=== PATIENT | male | born 1990 | race African-American/Black ===

== ENCOUNTER 2021-03-03 11:00 | Emergency (ER) | payer SELFPAY ==
[2021-03-03 11:27] VITALS: BP 100/67; PULSE 79; RESP 17; TEMP 37; O2SAT 98; BMI 27.6
== END 2021-03-03 16:17 | disposition left against medical advice (07) ==
PROVIDERS: Emergency Provider Emergency Medicine
DX: R06.02 Shortness of breath (principal)
CPT/HCPCS: 99282

== ENCOUNTER 2021-03-12 19:56 | Emergency (ER) | payer OTHER, SELFPAY ==
--- NOTE | ~2021-03-12 | XR_ITS ---
EXAMINATION: XR CHEST CLINICAL INFORMATION: Cough. Shortness of breath. COMPARISON: None TECHNIQUE: Frontal view of the chest was obtained. FINDINGS: The lungs are clear. The cardiomediastinal silhouette is normal in size. There is no pleural effusion or pneumothorax. No acute osseous abnormality. XR/XR chest 1V IMPRESSION: No acute cardiopulmonary findings.
[2021-03-12 20:00] VITALS: BP 152/78; PULSE 127; RESP 20; TEMP 36.9; O2SAT 95; BMI 26.6
[2021-03-12] MEDS: methylPREDNISolone Sod Succ 125 MG/2 ML VIAL IVPUSH (20:22)
[2021-03-12 20:24] LABS: MANUAL DIFF FLAG NO
[2021-03-12 20:25] LABS: COVID-19 Test Negative (Negative)
[2021-03-12 20:26] LABS: Basophils Absolute Auto 0.1 X10*3/uL (0.0-0.2); Basophils Percent Auto 0.5 % (0-2); Eosinophils Absolute Auto 0.5 X10*3/uL (0.0-0.4); Hematocrit 45.9 % (42-52); Imm Gran Abs Auto 0.03 X10*3/uL (0.00-0.03); Imm Gran Pct Auto 0.3 % (0.0-0.4); Lymphocytes Absolute Auto 2.6 X10*3/uL (1.2-4.9); Lymphocytes Percent Auto 26.7 % (20-40); Mean Corpuscular HGB Conc 34.9 g/dl (31.0-36.0); Mean Corpuscular Hemoglobin 28.6 pg (27.0-33.0); Mean Corpuscular Volume 82.1 fL (80-98); Mean Platelet Volume 8.8 fL (9.4-12.4); Monocytes Absolute Auto 0.8 X10*3/uL (0.1-1.2); Monocytes Percent Auto 7.6 % (2-11); Neutrophils Absolute Auto 5.9 X10*3/uL (2.0-8.3); Neutrophils Percent Auto 59.9 % (45-73); Platelet Count 253 X10*3/uL (160-400); Red Blood Count 5.59 X10*6/uL (4.60-5.80); White Blood Count 9.8 X10*3/uL (4.8-10.8)
[2021-03-12] MEDS: Magnesium Sulfate/H2O 2 GM/50 ML PIGGYBACK IV (20:27)
[2021-03-12] MEDS: 0.9 % Sodium Chloride 1,000 ML 999 ML IV (20:31)
[2021-03-12] MEDS: Albuterol Sulfate (0.083%) 2.5 MG/3 ML VIAL.NEB 7.5 MG INHALE (20:37)
[2021-03-12 20:38] VITALS: PULSE 96; O2SAT 97
[2021-03-12 20:57] LABS: Alanine Aminotransferase 47 U/L (0-40); Albumin Level 4.6 g/dL (3.5-5.0); Alkaline Phosphatase 95 U/L (39-117); Anion Gap 16 (12-20); Aspartate Amino Transferase 30 U/L (5-37); Bilirubin Total 0.4 mg/dL (0.0-1.0); Blood Urea Nitrogen 9 mg/dL (9-16); Calcium 9.6 mg/dL (8.4-10.2); Carbon Dioxide 24 mmol/L (22-29); Chloride 107 mmol/L (96-108); Creatinine Clr Calc Pharmacy 91.9; Estimated Glomerular Filt Rate > 60; Glucose Random 94 mg/dL (60-115); Potassium 3.8 mmol/L (3.3-5.1); Sodium 143 mmol/L (135-145); Total Protein 7.8 g/dL (6.5-8.0)
--- NOTE | 2021-03-12 22:35 | ED_ITS ---
HPI - Asthma General Chief Complaint: Asthma Stated Complaint: asthma Time Seen by Provider: 03/12/21 20:11 Source: patient Mode of arrival: wheelchair Limitations: no limitations History of Present Illness HPI Narrative: 22-year-old male who reports history of asthma presenting complaint of dry cough with now shortness of breath with wheezing for the past 5-6 days. 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 He denies any recent fever, travel or sick contacts. States he has received both of his COVID-19 vaccinations. He denies any chest pain. Foot be smoking. MD complaint: asthma attack Onset (ago): day(s) Severity: moderate Context: allergen exposure Associated symptoms: dry cough Treatments Prior to Arrival: inhaled bronchodilator Related Data Current Asthma Therapy: inhaled bronchodilator Previous Rx's Medication Instructions Recorded albuterol sulfate 90 mcg/actuation 2 puff INHALATION Q4-6H PRN 7 Days 03/12/21 aerosol inhaler #8.5 g prednisone 20 mg tablet 40 mg PO DAILY 5 Days #10 tab 03/12/21 Allergies Allergy/AdvReac Type Severity Reaction Status Date / Time unknown antibiotic Allergy Itching Uncoded 03/03/21 11:26 Review of Systems Review of Systems: Constitutional: No Weight loss, No Fever, No Chills, No Night Sweats, No Fatigue, No Malaise ENT/Mouth: No Hearing loss, No Ear Pain, No Nasal Congestion, No Sinus Pain, No Hoarseness, No sore throat, No Rhinorrhea, No Swallowing Difficulty Eyes: No Eye Pain, No Swelling, No Redness, No Foreign Body, No Discharge, No Vision Changes Cardiovascular: No Chest Pain, No SOB, No Dyspnea on Exertion, No Orthopnea, No Edema, No Palpitations Respiratory: No Cough, No Sputum, No Wheezing, No Smoke Exposure, No Dyspnea Gastrointestinal: No Nausea, No Vomiting, No Diarrhea, No Constipation, No abdominal Pain, No Hematochezia, No Melena Genitourinary: No Dysuria, No Urinary Frequency, No Hematuria, No Urinary Incontinence, No Urgency, No Flank Pain, No Urinary Flow Changes, No Hesitancy Musculoskeletal: No joint pain, No Myalgias, No Joint Swelling Skin: No Skin Lesions, No rash Neuro: No Weakness, No Numbness, No Paresthesias, No Loss of Consciousness, No Dizziness, No Headache Psych: No Anxiety/Panic, No Depression, No SI/HI/AH/VH, No Social Issues, Heme/Lymph: No Bruising, No Bleeding,No Lymphadenopathy Endocrine: No Polyuria, No Polydipsia, No Temperature Intolerance [facility] Past Medical History Medical History (Updated 03/12/21 @ 22:38 by Trell Pastrana NP) Asthma Heart attack Social History Social History Advance Directives: No Advance Directives Information Provided: Yes Physical Exam Vital Signs: Vital Signs: Last Vital Signs Temp 98.4 F 03/12/21 20:00 Pulse 96 03/12/21 20:38 Resp 20 03/12/21 20:00 BP 152/78 H 03/12/21 20:00 Pulse Ox 95 03/12/21 20:00 Body Mass Index 26.6 Const: General: acute distress (Mild respiratory) and anxious (Tachypneic); No intoxicated appearing Nutritional Appearance: average body habitus Orientation/consciousness: patient oriented x3 HENMT: Head: Yes normal to inspection Ears: hearing grossly normal bilaterally Eyes: General: appearance normal, both eyes and all related structures Visual Erazo: normal visual erazo by confrontation Neck: Neck: Yes normal visual inspection, No positive Brudzinski's sign, No positive Kernig's sign and No tender Thyroid: Thyroid normal Chest: Chest palpation & inspection: normal inspection of the chest Resp: Effort & Inspection: Actively coughing (Mild dry) Auscultation: wheezes expiratory wheezes and throughout Cardio: Jugular venous distension: no JVD Rate: regular rate Rhythm: regular rhythm Heart sounds: S1 normal heart sound present and S2 normal heart sound present GI: Inspection: Yes normal to inspection Percussion: Yes normal to percussion Auscultation: normal bowel sounds : General: Yes no CVA tenderness Back/Spine/Pelvis: Back: no CVA tenderness Skin: General skin exam: no rashes or lesions noted Neuro: General: patient oriented x3 Extrem: General: Yes normal to inspection Course Course Course Narrative: Given IV fluids, Solu-Medrol and magnesium with our Lung up directly upon arrival feels significantly better. Lung sounds clear to auscultation. Labs overall stable, chest x-ray negative, COVID negative. Ambulatory without any evidence of shortness of breath with complaint of. He feels ?much better?. Will discharge home with supportive care, course of prednisone, return and follow-up instructions. Stable for discharge. Differential diagnosis include but not limited to asthma exacerbation setting of environmental allergen exposure, status asthmaticus, pneumonia, COVID-19, ACS less likely, PE less likely, dissection less likely. MDM - Asthma Lab Data Result diagrams: 03/12/21 20:19 03/12/21 20:19 Labs: Lab Results 03/12/21 03/12/21 03/12/21 Range/Units 20:05 20:19 20:19 WBC 9.8 (4.8-10.8) X10*3/uL RBC 5.59 (4.60-5.80) X10*6/uL Hgb 16.0 (14.0-18.0) g/dl Hct 45.9 (42-52) % MCV 82.1 (80-98) fL MCH 28.6 (27.0-33.0) pg MCHC 34.9 (31.0-36.0) g/dl RDW 14.0 (11.0-16.0) % Plt Count 253 (160-400) X10*3/uL MPV 8.8 L (9.4-12.4) fL Immature Gran % (Auto) 0.3 (0.0-0.4) % Neut % (Auto) 59.9 (45-73) % Lymph % (Auto) 26.7 (20-40) % [place] % (Auto) 7.6 (2-11) % Eos % (Auto) 5.0 H (0-4) % Baso % (Auto) 0.5 (0-2) % Lymph # (Auto) 2.6 (1.2-4.9) X10*3/uL [place] # (Auto) 0.8 (0.1-1.2) X10*3/uL Eos # (Auto) 0.5 H (0.0-0.4) X10*3/uL Baso # (Auto) 0.1 (0.0-0.2) X10*3/uL Abs Immat Gran (auto) 0.03 (0.00-0.03) X10*3/uL Absolute Neuts (auto) 5.9 (2.0-8.3) X10*3/uL Absolute Nucleated RBC 0.000 (0.0-0.012) X10*3/uL Nucleated RBC % (auto) 0.0 (0.0-0.2) /100WBC Sodium 143 (135-145) mmol/L Potassium 3.8 (3.3-5.1) mmol/L Chloride 107 (96-108) mmol/L Carbon Dioxide 24 (22-29) mmol/L Anion Gap 16 (12-20) BUN 9 (9-16) mg/dL Creatinine 1.04 (0.5-1.4) mg/dL Estim Creat Clear Calc 91.9 Estimated GFR > 60 Random Glucose 94 (60-115) mg/dL Calcium 9.6 (8.4-10.2) mg/dL Total Bilirubin 0.4 (0.0-1.0) mg/dL AST 30 (5-37) U/L ALT 47 H (0-40) U/L Alkaline Phosphatase 95 (39-117) U/L Total Protein 7.8 (6.5-8.0) g/dL Albumin 4.6 (3.5-5.0) g/dL COVID-19 (ESTER) Negative (Negative) COVID-19 Clin Com See Note Discharge Plan Discharge Clinical Impression: Asthma with acute exacerbation Qualifiers: Asthma severity: unspecified severity Asthma persistence: unspecified Qualified Code(s): J45.901 - Unspecified asthma with (acute) exacerbation Patient Disposition: Home, Self-Care Instructions: Asthma (ED) Additional Instructions: Supportive care Avoid triggers Take medication as prescribed Return if any concerns or worsening symptoms Follow up with primary doctor in the next 2-3 days Thank you Prescriptions: New prednisone 20 mg tablet 40 mg PO DAILY 5 Days Qty: 10 RF: 0 albuterol sulfate 90 mcg/actuation HFA aerosol inhaler 2 puff inhalation Q4-6H PRN (Reason: shortness of breath or wheezing) 7 Days Qty: 8.5 RF: 0 Referrals: Radha Winter MD [Primary Care Provider] - 2 days
[2021-03-12 22:51] VITALS: BP 112/64; PULSE 94; RESP 16; O2SAT 96
== END 2021-03-12 22:57 | disposition home or self-care (01) ==
PROVIDERS: Nurse Practitioner Primary Care; Emergency Provider Emergency Medicine; PCP Internal Medicine
DX: J45.901 Unspecified asthma with (acute) exacerbation (principal); Z20.822 Contact with and (suspected) exposure to COVID-19
CPT/HCPCS: 36415; 71045; 80053; 85025; 87635; 94640; 94644; 96361; 96365; 96366; 96375; 99283; 99284; J2930; J3475

== ENCOUNTER 2021-04-20 13:43 | Emergency (ER) | payer OTHER, SELFPAY ==
--- NOTE | ~2021-04-20 | XR_ITS ---
EXAMINATION: XR CHEST CLINICAL INFORMATION: Dyspnea COMPARISON: Previous chest x-ray February 2021 TECHNIQUE: Frontal view of the chest was obtained. FINDINGS: No significant abnormality is noted involving the heart, lungs, mediastinum, bony thorax or soft tissues. XR/XR chest 1V IMPRESSION: Unremarkable examination.
[2021-04-20 13:45] VITALS: BP 121/81; PULSE 119; RESP 36; TEMP 36.6; O2SAT 94; BMI 26.6
--- NOTE | 2021-04-20 14:00 | ECG_ITS ---
Test Reason : ATHSMA Blood Pressure : / mmHG Vent. Rate : 101 BPM Atrial Rate : 101 BPM P-R Int : 172 ms QRS Dur : 084 ms QT Int : 322 ms P-R-T Axes : 071 085 055 degrees QTc Int : 417 ms Sinus tachycardia Otherwise normal ECG No previous ECGs available Referred By: Lucie Malloy Electronically Signed By:RUFUS RHODES
[2021-04-20] MEDS: 0.9 % Sodium Chloride 1,000 ML 999 ML IV (14:03)
[2021-04-20] MEDS: methylPREDNISolone Sod Succ 125 MG/2 ML VIAL IVPUSH (14:03)
[2021-04-20] MEDS: Magnesium Sulfate/H2O 2 GM/50 ML PIGGYBACK IV (14:03)
--- NOTE | 2021-04-20 14:03 | ED_ITS ---
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) Associated symptoms: dry cough Asthma History: childhood onset Treatments Prior to Arrival: other (tried INH multiple times no relief) Related Data Previous Rx's Medication Instructions Recorded albuterol sulfate 90 mcg/actuation 2 puff INHALATION Q4-6H PRN 7 Days 03/12/21 aerosol inhaler #8.5 g prednisone 20 mg tablet 40 mg PO DAILY 5 Days #10 tab 03/12/21 albuterol sulfate 2.5 mg INHALATION Q4-6H PRN #75 ml 04/20/21 prednisone 20 mg tablet 60 mg PO DAILY 5 Days #15 tab 04/20/21 Allergies Allergy/AdvReac Type Severity Reaction Status Date / Time unknown antibiotic Allergy Itching Uncoded 03/03/21 11:26 Review of Systems Review of Systems: Constitutional : No Fever, No Chills ENT/Mouth : No Hoarseness, No sore throat, No Rhinorrhea Eyes: No Redness, No Discharge, No Vision Changes Cardiovascular : No Chest Pain, positive SOB, positive Dyspnea on Exertion, No Edema Respiratory : positive Cough, No Sputum, positive Wheezing, Gastrointestinal : No Nausea, No Vomiting, No Diarrhea, No abdominal Pain Genitourinary : No Dysuria, No Hematuria Musculoskeletal : No joint pain, No Myalgias Skin : No rash Neuro : No Weakness, No Numbness, No Headache Psych : No anxiety, depression Heme/Lymph: No Bruising, No Bleeding Endocrine : No Polyuria, No Polydipsia All other systems reviewed and are negative PMFSH Past Medical History Attestation statement: The following information was validated with the patient. Medical History Asthma Heart attack Social History Social History (Updated 04/20/21 @ 14:10 by Lucie Malloy DO) Patient Tobacco Use Status: Current someday Tobacco user Use of substances other than those prescribed or required for medical reasons: No Physical Exam Vital Signs: Vital Signs: Last Vital Signs Temp 98 F 04/20/21 13:45 Pulse 111 H 04/20/21 14:35 Resp 18 04/20/21 14:35 BP 133/90 H 04/20/21 14:35 Pulse Ox 96 04/20/21 14:35 Body Mass Index 26.6 Appearance: Alert. Oriented X3. mild acute distress. Eyes: Pupils equal, round and reactive to light. ENT: Pharynx normal. Neck: Normal inspection. Neck supple. CVS:tachycardic heart rate and rhythm. Pulses normal. Respiratory: Mild respiratory distress retractions and tachypnea Breath sounds diffuse insp and exp wheezes Abdomen: Soft and nontender. Skin: Skin warm and dry. Normal skin color. Normal skin turgor. Extremities: No lower extremity edema. No calf ttp Neuro: Oriented X 3. No motor deficit. No sensory deficit. Course Course Course Narrative: markedly improved, 97% on RA Clear lungs patient is not hypoxic he is 97-98% on RA. Safe for discharge home MDM - Asthma MDM Narrative Medical decision making narrative: 30 yo male with hx of asthma comes in with attack for 2 days thinks it is due to his cold exposures at work. At this time will need labs, IV steroids, IV magnesium, hour long 10mg neb, COVID swab and CXR, dispo per results and workup. Lab Data Result diagrams: 04/20/21 14:06 04/20/21 14:06 Labs: Lab Results 04/20/21 04/20/21 04/20/21 Range/Units 14:06 14:06 14:17 WBC 8.7 (4.8-10.8) X10*3/uL RBC 5.50 (4.60-5.80) X10*6/uL Hgb 15.8 (14.0-18.0) g/dl Hct 45.4 (42-52) % MCV 82.5 (80-98) fL MCH 28.7 (27.0-33.0) pg MCHC 34.8 (31.0-36.0) g/dl RDW 13.3 (11.0-16.0) % Plt Count 286 (160-400) X10*3/uL MPV 8.6 L (9.4-12.4) fL Immature Gran % (Auto) 0.2 (0.0-0.4) % Neut % (Auto) 68.7 (45-73) % Lymph % (Auto) 18.0 L (20-40) % [place] % (Auto) 9.0 (2-11) % Eos % (Auto) 3.4 (0-4) % Baso % (Auto) 0.7 (0-2) % Lymph # (Auto) 1.6 (1.2-4.9) X10*3/uL [place] # (Auto) 0.8 (0.1-1.2) X10*3/uL Eos # (Auto) 0.3 (0.0-0.4) X10*3/uL Baso # (Auto) 0.1 (0.0-0.2) X10*3/uL Abs Immat Gran (auto) 0.02 (0.00-0.03) X10*3/uL Absolute Neuts (auto) 6.0 (2.0-8.3) X10*3/uL Absolute Nucleated RBC 0.000 (0.0-0.012) X10*3/uL Nucleated RBC % (auto) 0.0 (0.0-0.2) /100WBC Sodium 141 (135-145) mmol/L Potassium 4.3 (3.3-5.1) mmol/L Chloride 109 H (96-108) mmol/L Carbon Dioxide 25 (22-29) mmol/L Anion Gap 11 L (12-20) BUN 14 D (9-16) mg/dL Creatinine 1.06 (0.5-1.4) mg/dL Estim Creat Clear Calc 90.2 Estimated GFR > 60 Random Glucose 95 (60-115) mg/dL Calcium 9.0 D (8.4-10.2) mg/dL COVID-19 (ESTER) Negative (Negative) COVID-19 Clin Com See Note ECG Data Attestation: I personally reviewed and interpreted this ECG as follows: ECG interpretation date: 04/20/21 ECG interpretation time: 15:26 Interpretation: Rate: 101 Rhythm: sinus tachycardia [place]: normal Normal P waves. Normal TONIA. Normal QRS complex. ST T wave : normal no MICHELE qTC: normal prior studies: no acute ischemia The study has been interpreted contemporaneously by me. . Critical Care Time Critical Care Time Critical Care Time: Yes Total Critical Care Time: 35 Attestation: hour long neb, reassessments I attest to this time spent taking care of the patient Discharge Plan Discharge Clinical Impression: Asthma with acute exacerbation Qualifiers: Asthma severity: moderate Asthma persistence: persistent Qualified Code(s): J45.41 - Moderate persistent asthma with (acute) exacerbation Instructions: Asthma (ED) Additional Instructions: return to ED for any worsening symptoms or concerns COVID negative Prescriptions: New albuterol sulfate 2.5 mg /3 mL (0.083 %) solution for nebulization 2.5 mg inhalation Q4-6H PRN (Reason: bronchospasm) Qty: 75 RF: 0 prednisone 20 mg tablet 60 mg PO DAILY 5 Days Qty: 15 RF: 0 No Action prednisone 20 mg tablet 40 mg PO DAILY 5 Days Qty: 10 RF: 0 albuterol sulfate 90 mcg/actuation HFA aerosol inhaler 2 puff inhalation Q4-6H PRN (Reason: shortness of breath or wheezing) 7 Days Qty: 8.5 RF: 0 Stand Alone Forms: Work/School Release
[2021-04-20] MEDS: Albuterol Sulfate (0.083%) 2.5 MG/3 ML VIAL.NEB 10 MG INHALE (14:05)
[2021-04-20 14:09] LABS: MANUAL DIFF FLAG NO
[2021-04-20 14:11] LABS: Basophils Absolute Auto 0.1 X10*3/uL (0.0-0.2); Basophils Percent Auto 0.7 % (0-2); Eosinophils Absolute Auto 0.3 X10*3/uL (0.0-0.4); Eosinophils Percent Auto 3.4 % (0-4); Hematocrit 45.4 % (42-52); Hemoglobin 15.8 g/dl (14.0-18.0); Imm Gran Abs Auto 0.02 X10*3/uL (0.00-0.03); Imm Gran Pct Auto 0.2 % (0.0-0.4); Lymphocytes Absolute Auto 1.6 X10*3/uL (1.2-4.9); Mean Corpuscular HGB Conc 34.8 g/dl (31.0-36.0); Mean Corpuscular Hemoglobin 28.7 pg (27.0-33.0); Mean Corpuscular Volume 82.5 fL (80-98); Mean Platelet Volume 8.6 fL (9.4-12.4); Monocytes Absolute Auto 0.8 X10*3/uL (0.1-1.2); Neutrophils Percent Auto 68.7 % (45-73); Platelet Count 286 X10*3/uL (160-400); Red Cell Distribution Width 13.3 % (11.0-16.0); White Blood Count 8.7 X10*3/uL (4.8-10.8)
[2021-04-20 14:24] LABS: Anion Gap 11 (12-20); Blood Urea Nitrogen 14 mg/dL (9-16); Carbon Dioxide 25 mmol/L (22-29); Chloride 109 mmol/L (96-108); Creatinine Clr Calc Pharmacy 90.2; Estimated Glomerular Filt Rate > 60; Glucose Random 95 mg/dL (60-115); Potassium 4.3 mmol/L (3.3-5.1); Sodium 141 mmol/L (135-145)
[2021-04-20 14:35] VITALS: BP 133/90; PULSE 111; RESP 18; O2SAT 96
[2021-04-20 14:35] LABS: COVID-19 Test Negative (Negative); IDNOW Serial# 9DD0AD1C
== END 2021-04-20 16:01 | disposition home or self-care (01) ==
LOC: HO.ED 16:00
PROVIDERS: Emergency Provider Emergency Medicine
DX: J45.41 Moderate persistent asthma with (acute) exacerbation (principal); R06.02 Shortness of breath; R05 Cough; Z20.822 Contact with and (suspected) exposure to COVID-19; F17.200 Nicotine dependence, unspecified, uncomplicated; Z71.6 Tobacco abuse counseling; Z79.899 Other long term (current) drug therapy
CPT/HCPCS: 36415; 71045; 80048; 85025; 87635; 93005; 96365; 96366; 96375; 99284; 99291; J2930; J3475

== ENCOUNTER 2021-05-25 18:10 | Emergency (ER) | payer OTHER, SELFPAY ==
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
--- NOTE | ~2021-05-25 | CT_ITS ---
Indication: Trauma EXAMINATION: CT of the cervical spine and CT brain. Axial imaging with coronal and sagittal reformatted images. Radiation dose is 672.470. This CT examination was performed using dose optimization techniques as appropriate, variously including the following: *Automated exposure control *Adjustment of mA and/or kV according to patient size (this includes techniques or standardized protocols for targeted exams where dose is matched to indication/reason for exam; i.e. extremities or head) *Use of iterative reconstruction technique Cervical spine; No acute fracture or dislocation. CT brain; No midline shift. There is no mass effect. There is no hemorrhage. The basilar cisterns appear patent. The posterior fossa risk grossly within normal limits. There is no extra-axial collection. No evidence for fracture on the bone windows. CT/CT cervical spine wo con IMPRESSION: Negative acute noncontrast CT of the brain. No acute fracture or dislocation of the cervical spine.
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
[2021-05-25 18:57] VITALS: BP 105/57; BP 138/80; PULSE 77; RESP 18; TEMP 36.9; O2SAT 98; O2SAT 99; BMI 27.9
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
[2021-05-25] MEDS: Acetaminophen 325 MG TABLET 975 MG PO (19:28)
== END 2021-05-25 20:30 | disposition home or self-care (01) ==
PROVIDERS: Emergency Provider Internal Medicine
DX: S06.0X0A Concussion without loss of consciousness, initial encounter (principal); S73.109A Unspecified sprain of unspecified hip, initial encounter; S83.91XA Sprain of unspecified site of right knee, initial encounter; S93.401A Sprain of unspecified ligament of right ankle, initial encounter; V13.4XXA Pedal cycle driver injured in collision with car, pick-up truck or van in traffic accident, initial encounter; Y93.55 Activity, bike riding; Y92.410 Unspecified street and highway as the place of occurrence of the external cause; Y99.9 Unspecified external cause status
CPT/HCPCS: 70450; 72125; 73522; 73564; 73610; 99283; 99284

== ENCOUNTER 2021-06-25 19:04 | Emergency (ER) | payer OTHER, SELFPAY ==
--- NOTE | ~2021-06-25 | XR_ITS ---
EXAMINATION: XR CHEST CLINICAL INFORMATION: Shortness of breath COMPARISON: 04/20/2021 TECHNIQUE: Frontal view of the chest was obtained. FINDINGS: No focal consolidation, pulmonary edema, or pleural effusion. Stable cardiomediastinal silhouette. XR/XR chest 1V IMPRESSION: Unremarkable examination.
[2021-06-25 19:17] VITALS: BP 137/92; PULSE 92; RESP 22; TEMP 36.7; O2SAT 97; BMI 28.3
[2021-06-25] MEDS: Albuterol Sulfate (0.083%) 2.5 MG/3 ML VIAL.NEB 10 MG INHALE (19:32)
[2021-06-25 19:33] VITALS: PULSE 87; O2SAT 98
[2021-06-25] MEDS: 0.9 % Sodium Chloride 1,000 ML 999 ML IVCONT (19:49)
[2021-06-25 19:51] LABS: MANUAL DIFF FLAG NO
[2021-06-25 19:54] LABS: Basophils Absolute Auto 0.1 X10*3/uL (0.0-0.2); Basophils Percent Auto 0.8 % (0-2); Eosinophils Absolute Auto 0.7 X10*3/uL (0.0-0.4); Eosinophils Percent Auto 6.5 % (0-4); Hematocrit 46.9 % (42.0-52.0); Hemoglobin 16.1 g/dl (14.0-18.0); Imm Gran Abs Auto 0.03 X10*3/uL (0.00-0.03); Imm Gran Pct Auto 0.3 % (0.0-0.4); Lymphocytes Absolute Auto 2.9 X10*3/uL (1.2-4.9); Lymphocytes Percent Auto 28.1 % (20-40); Mean Corpuscular HGB Conc 34.3 g/dl (31.0-36.0); Mean Corpuscular Hemoglobin 28.4 pg (27.0-33.0); Mean Corpuscular Volume 82.7 fL (80.0-98.0); Mean Platelet Volume 8.9 fL (9.4-12.4); Monocytes Absolute Auto 0.7 X10*3/uL (0.1-1.2); Monocytes Percent Auto 6.2 % (2-11); Neutrophils Percent Auto 58.1 % (45-73); Platelet Count 225 X10*3/uL (160-400); Red Blood Count 5.67 X10*6/uL (4.60-5.80); Red Cell Distribution Width 13.6 % (11.0-16.0); White Blood Count 10.4 X10*3/uL (4.8-10.8)
[2021-06-25 20:07] LABS: Anion Gap 12 (12-20); Blood Urea Nitrogen 13 mg/dL (9-16); Calcium 9.1 mg/dL (8.4-10.2); Carbon Dioxide 26 mmol/L (22-29); Chloride 108 mmol/L (96-108); Creatinine Clr Calc Pharmacy 76.9; Estimated Glomerular Filt Rate > 60; Glucose Random 131 mg/dL (60-115); Potassium 3.9 mmol/L (3.3-5.1); Sodium 142 mmol/L (135-145)
[2021-06-25 20:10] LABS: COVID-19 Test Negative (Negative); IDNOW Serial# 08D9AD1C
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
[2021-06-25 21:16] VITALS: O2SAT 99
--- NOTE | 2021-06-25 21:47 | PC.NURSE ---
I assumed care of Clovis upon his arrival via EMS from home. On arrival he was experiencing severe L flank pain that he stated started while en route to the ED. He initially called 911 due to dyspnea and wheezing. EMS states he was in moderate resp. distress on their arrival, requiring 2 DuoNebs, IV Magnesium 2grams and IVP SoluMedrol 125mg. Upon arrival to ED pt states his SOB and wheezing had improved. RT was present on admission and continued pt on nebs. At this time pt feels much improved, denies L flank pain and admits to relief of shortness of breath. He has ambulated throughout the department without exhibiting shortness of breath and while maintaining a room air sat of 99%. Clovis has been pleasant, calm and cooperative. He ambulates independently and with steady gait. Clovis is discharged at this time. He verbalized an understanding of all DC orders and ambulated out of the ED independently and with steady gait.
== END 2021-06-25 22:00 | disposition home or self-care (01) ==
PROVIDERS: Emergency Provider Internal Medicine
DX: J45.901 Unspecified asthma with (acute) exacerbation (principal); R06.82 Tachypnea, not elsewhere classified; Z20.822 Contact with and (suspected) exposure to COVID-19; R07.81 Pleurodynia; F17.200 Nicotine dependence, unspecified, uncomplicated; Z79.899 Other long term (current) drug therapy
CPT/HCPCS: 36415; 71045; 80048; 85025; 87635; 94640; 94644; 96360; 99284; 99285

== ENCOUNTER 2021-07-07 19:02 | Emergency (ER) | payer OTHER, SELFPAY ==
--- NOTE | ~2021-07-07 | XR_ITS ---
EXAMINATION: XR CHEST CLINICAL INFORMATION: Shortness of breath COMPARISON: 06/25/2021 TECHNIQUE: Frontal view of the chest was obtained. FINDINGS: No significant abnormality is noted involving the heart, lungs, mediastinum, bony thorax or soft tissues. Compared to the prior study, the lungs are hypoinflated. XR/XR chest 1V IMPRESSION: No acute intrathoracic disease.
[2021-07-07 19:08] VITALS: BP 152/92; PULSE 119; RESP 26; O2SAT 99; BMI 28.3
--- NOTE | 2021-07-07 19:09 | ED.ASTHMA ---
HPI - Asthma General Chief Complaint: Dyspnea Stated Complaint: sob Time Seen by Provider: 07/07/21 19:05 Source: patient and EMS Mode of arrival: EMS Limitations: other (Shortness of breath) History of Present Illness HPI Narrative: Patient comes via EMS complaining of shortness of breath. Patient is known to have asthma. Per EMS, patient received Solu-Medrol, DuoNebs, magnesium. Related Data Previous Rx's Medication Instructions Recorded albuterol sulfate 90 mcg/actuation 2 puff INHALATION Q4-6H PRN 7 Days 03/12/21 aerosol inhaler #8.5 g prednisone 20 mg tablet 40 mg PO DAILY 5 Days #10 tab 03/12/21 albuterol sulfate 2.5 mg (3 mL) INHALATION Q4-6H PRN 04/20/21 #75 ml prednisone 20 mg tablet 60 mg PO DAILY 5 Days #15 tab 04/20/21 acetaminophen 500 mg tablet 1,000 mg PO QID PRN #14 tab 05/25/21 (Tylenol Extra Strength) cyclobenzaprine 10 mg tablet 10 mg PO Q8H PRN #14 tab 05/25/21 albuterol sulfate 90 mcg/actuation 2 puff INHALATION Q4-6H PRN #8.5 g 06/25/21 aerosol inhaler (ProAir HFA) prednisone 20 mg tablet 40 mg PO DAILY #10 tab 06/25/21 albuterol sulfate 2.5 mg/0.5 mL 2.5 mg (0.5 mL) INHALATION QID PRN 07/07/21 solution for nebulization #30 ea albuterol sulfate 90 mcg/actuation 2 puff INHALATION Q4-6H PRN #8.5 g 07/07/21 aerosol inhaler (ProAir HFA) ipratropium 20 mcg-albuterol 100 1 puff INHALATION QID #4 g 07/07/21 mcg/actuation mist for inhalation (Combivent Respimat) prednisone 50 mg tablet 50 mg PO DAILY #5 tab 07/07/21 Allergies Allergy/AdvReac Type Severity Reaction Status Date / Time unknown antibiotic Allergy Itching Uncoded 03/03/21 11:26 Review of Systems Review of Systems: Constitutional : No Weight loss, No Fever, No Chills, No Night Sweats, No Fatigue, No Malaise ENT/Mouth : No Hearing loss, No Ear Pain, No Nasal Congestion, No Sinus Pain, No Hoarseness, No sore throat, No Rhinorrhea, No Swallowing Difficulty Eyes: No Eye Pain, No Swelling, No Redness, No Foreign Body, No Discharge, No Vision Changes Cardiovascular : No Chest Pain, No SOB, No Dyspnea on Exertion, No Orthopnea, No Edema, No Palpitations Respiratory : No Cough, No Sputum, complaining of wheezing shortness of breath Gastrointestinal : No Nausea, No Vomiting, No Diarrhea, No Constipation, No abdominal Pain, No Hematochezia, No Melena Genitourinary : no irregular bleeding, No Dysuria, No Urinary Frequency, No Hematuria, No Urinary Incontinence, No Urgency, No Flank Pain, No Urinary Flow Changes, No Hesitancy Musculoskeletal : No joint pain, No Myalgias, No Joint Swelling Skin : No Skin Lesions, No rash Neuro : No Weakness, No Numbness, No Paresthesias, No Loss of Consciousness, No Dizziness, No Headache Psych : No Anxiety/Panic, No Depression, No SI/HI/AH/VH, No Social Issues, Heme/Lymph: No Bruising, No Bleeding,No Lymphadenopathy Endocrine : No Polyuria, No Polydipsia, No Temperature Intolerance [facility] Past Medical History Medical History Asthma Heart attack Social History Social History Alcohol intake: current Patient Tobacco Use Status: Current someday Tobacco user Advance Directives: No Advance Directives Information Provided: Yes Physical Exam Vital Signs: Vital Signs: Last Vital Signs Pulse 108 H 07/07/21 20:41 Resp 22 H 07/07/21 20:41 BP 149/68 H 07/07/21 19:49 Pulse Ox 98 07/07/21 19:49 Oxygen Flow Rate 7 07/07/21 19:08 BMI result Body Mass Index 28.3 Const: Other: Appearance: Alert. Oriented X3. No acute distress. Eyes: Pupils equal, round and reactive to light. ENT: Pharynx normal. Neck: Normal inspection. Neck supple. No lymph nodes noted. No crepitus CVS: Normal heart rate and rhythm. Pulses normal. Normal S1 and S2 Respiratory: No respiratory distress. Breath sounds normal. No Wheezing. No rales Abdomen: Soft and nontender. No rigidity. No distention. good BS x4 Skin: Skin warm and dry. Normal skin color. Normal skin turgor. Extremities: No lower extremity edema. No lower extremity edema. No Lacerations. No Rash Neuro: Oriented X 3. No motor deficit. No sensory deficit. Moving all extermities. No slurred speech. Course Course Course Narrative: Patient is currently on his 2nd our long nebulization treatment. Patient feels much better, no longer wheezing. Anticipating to discharge patient home. Pending ambulation trial Sign out given to Dr. Salinas [facility] - Asthma Lab Data Result diagrams: 07/07/21 19:17 07/07/21 19:17 Labs: Lab Results 07/07/21 07/07/21 07/07/21 Range/Units 19:17 19:17 19:20 WBC 14.2 H (4.8-10.8) X10*3/uL RBC 5.58 (4.60-5.80) X10*6/uL Hgb 15.8 (14.0-18.0) g/dl Hct 46.0 (42.0-52.0) % MCV 82.4 (80.0-98.0) fL MCH 28.3 (27.0-33.0) pg MCHC 34.3 (31.0-36.0) g/dl RDW 13.9 (11.0-16.0) % Plt Count 244 (160-400) X10*3/uL MPV 8.6 L (9.4-12.4) fL Immature Gran % (Auto) 0.4 (0.0-0.4) % Neut % (Auto) 72.2 (45-73) % Lymph % (Auto) 15.7 L (20-40) % [place] % (Auto) 8.0 (2-11) % Eos % (Auto) 3.1 (0-4) % Baso % (Auto) 0.6 (0-2) % Lymph # (Auto) 2.2 (1.2-4.9) X10*3/uL [place] # (Auto) 1.1 (0.1-1.2) X10*3/uL Eos # (Auto) 0.4 (0.0-0.4) X10*3/uL Baso # (Auto) 0.1 (0.0-0.2) X10*3/uL Abs Immat Gran (auto) 0.06 H (0.00-0.03) X10*3/uL Absolute Neuts (auto) 10.2 H (2.0-8.3) x10*3/uL Absolute Nucleated RBC 0.000 (0.0-0.012) X10*3/uL Nucleated RBC % (auto) 0.0 (0.0-0.2) /100WBC VBG pH 7.37 (7.32-7.43) VBG pCO2 44 mmHg VBG pO2 88 mmHg VBG HCO3 26 (22-26) mmol/L VBG O2 Saturation 96.0 % VBG Base Excess 0.5 mmol/L Sodium 139 (135-145) mmol/L Potassium 4.1 (3.3-5.1) mmol/L Chloride 107 (96-108) mmol/L Carbon Dioxide 23 (22-29) mmol/L Anion Gap 13 (12-20) BUN 10 (9-16) mg/dL Creatinine 1.05 (0.5-1.4) mg/dL Estim Creat Clear Calc 100.3 Estimated GFR > 60 Random Glucose 107 (60-115) mg/dL Calcium 9.4 (8.4-10.2) mg/dL Discharge Plan Discharge Clinical Impression: Asthma with exacerbation Patient Disposition: Home, Self-Care Instructions: Asthma (ED) Additional Instructions: Please follow-up with your primary care physician tomorrow. If you have any worsening or new symptoms, please return to the emergency room or call 911 Prescriptions: New Combivent Respimat 20-100 mcg/actuation mist 1 puff inhalation QID Qty: 4 RF: 0 albuterol sulfate [ProAir HFA] 90 mcg/actuation HFA aerosol inhaler 2 puff inhalation Q4-6H PRN (Reason: shortness of breath or wheezing) Qty: 8.5 RF: 1 prednisone 50 mg tablet 50 mg PO DAILY Qty: 5 RF: 0 albuterol sulfate 2.5 mg/0.5 mL solution for nebulization 2.5 mg inhalation QID PRN (Reason: shortness of breath or wheezing) Qty: 30 RF: 0 No Action prednisone 20 mg tablet 40 mg PO DAILY 5 Days Qty: 10 RF: 0 albuterol sulfate 90 mcg/actuation HFA aerosol inhaler 2 puff inhalation Q4-6H PRN (Reason: shortness of breath or wheezing) 7 Days Qty: 8.5 RF: 0 albuterol sulfate 2.5 mg /3 mL (0.083 %) solution for nebulization 2.5 mg inhalation Q4-6H PRN (Reason: bronchospasm) Qty: 75 RF: 0 prednisone 20 mg tablet 60 mg PO DAILY 5 Days Qty: 15 RF: 0 acetaminophen [Tylenol Extra Strength] 500 mg tablet 1,000 mg PO QID PRN (Reason: fever or pain) Qty: 14 RF: 0 cyclobenzaprine 10 mg tablet 10 mg PO Q8H PRN (Reason: Muscle spasm) Qty: 14 RF: 0 albuterol sulfate [ProAir HFA] 90 mcg/actuation HFA aerosol inhaler 2 puff inhalation Q4-6H PRN (Reason: shortness of breath or wheezing) Qty: 8.5 RF: 0 prednisone 20 mg tablet 40 mg PO DAILY Qty: 10 RF: 0
[2021-07-07 19:19] VITALS: PULSE 113; RESP 26; O2SAT 99
[2021-07-07] MEDS: Albuterol/Iprat 2.5/0.5MG 3 ML AMPUL.NEB INHALE (19:19)
[2021-07-07] MEDS: Albuterol Sulfate (0.083%) 2.5 MG/3 ML VIAL.NEB 10 MG INHALE ×2 (19:19→20:40)
--- NOTE | 2021-07-07 19:21 | PC.NURSE ---
Pt attached to telemetry monitor and pulse ox, call light at hand. Remains dyspneic but endorses feeling better than he did on initial EMS arrival. RT at bedside for additional duoneb and hour-long treatment. Pt remains awake and alert, skin warm and dry
[2021-07-07 19:22] LABS: MANUAL DIFF FLAG NO
[2021-07-07 19:26] LABS: Venous Blood Gas Refer to POC result
[2021-07-07 19:26] LABS: VBG Base Excess 0.5 mmol/L; VBG HCO3 26 mmol/L (22-26); VBG pCO2 44 mmHg; VBG pH 7.37 (7.32-7.43); VBG pO2 88 mmHg
[2021-07-07 19:28] LABS: Basophils Absolute Auto 0.1 X10*3/uL (0.0-0.2); Basophils Percent Auto 0.6 % (0-2); Eosinophils Absolute Auto 0.4 X10*3/uL (0.0-0.4); Eosinophils Percent Auto 3.1 % (0-4); Hemoglobin 15.8 g/dl (14.0-18.0); Imm Gran Abs Auto 0.06 X10*3/uL (0.00-0.03); Imm Gran Pct Auto 0.4 % (0.0-0.4); Lymphocytes Absolute Auto 2.2 X10*3/uL (1.2-4.9); Lymphocytes Percent Auto 15.7 % (20-40); Mean Corpuscular HGB Conc 34.3 g/dl (31.0-36.0); Mean Corpuscular Hemoglobin 28.3 pg (27.0-33.0); Mean Corpuscular Volume 82.4 fL (80.0-98.0); Mean Platelet Volume 8.6 fL (9.4-12.4); Monocytes Absolute Auto 1.1 X10*3/uL (0.1-1.2); Neutrophils Absolute Auto 10.2 x10*3/uL (2.0-8.3); Neutrophils Percent Auto 72.2 % (45-73); Platelet Count 244 X10*3/uL (160-400); Red Blood Count 5.58 X10*6/uL (4.60-5.80); Red Cell Distribution Width 13.9 % (11.0-16.0); White Blood Count 14.2 X10*3/uL (4.8-10.8)
--- NOTE | 2021-07-07 19:32 | PC.NURSE ---
Pt received solumedrol and 2g mag IV per EMS. Additional doses held per MD Apodaca
[2021-07-07 19:36] LABS: Anion Gap 13 (12-20); Blood Urea Nitrogen 10 mg/dL (9-16); Calcium 9.4 mg/dL (8.4-10.2); Carbon Dioxide 23 mmol/L (22-29); Chloride 107 mmol/L (96-108); Creatinine Clr Calc Pharmacy 100.3; Estimated Glomerular Filt Rate > 60; Glucose Random 107 mg/dL (60-115); Potassium 4.1 mmol/L (3.3-5.1); Sodium 139 mmol/L (135-145)
[2021-07-07 19:49] VITALS: BP 149/68; PULSE 116; RESP 24; O2SAT 98
[2021-07-07 20:41] VITALS: PULSE 108; RESP 22; O2SAT 98
--- NOTE | 2021-07-07 21:03 | PC.NURSE ---
Pt w/ decreased WOB, endorses relief s/p nebulizer administration. Remains attached to monitor
--- NOTE | 2021-07-07 21:54 | PC.NURSE ---
Pt ambulatory O2 sat on room air remained > 95%. MD Salinas made aware
[2021-07-07 22:11] VITALS: PULSE 98; RESP 22; O2SAT 95
== END 2021-07-07 22:26 | disposition home or self-care (01) ==
PROVIDERS: Emergency Medicine; Emergency Provider Student in an Organized Health Care Education/Training Program
DX: J45.901 Unspecified asthma with (acute) exacerbation (principal); F17.200 Nicotine dependence, unspecified, uncomplicated
CPT/HCPCS: 36415; 71045; 80048; 82803; 85025; 94640; 94644; 94645; 96365; 96366; 96375; 99283; 99285

== ENCOUNTER 2021-07-15 17:06 | Inpatient (IN) | payer OTHER, SELFPAY ==
[2021-07-15] VITALS (13 sets, daily range): BP systolic 104–177; BP diastolic 59–109; PULSE 97–170; RESP 20–35; TEMP 30–37.3; O2SAT 94–100; BMI 25.1
--- NOTE | ~2021-07-15 | XR_ITS ---
EXAMINATION: XR CHEST CLINICAL INFORMATION: Status post intubation. COMPARISON: 07/07/2021 TECHNIQUE: Frontal view of the chest was obtained. FINDINGS: Endotracheal tube terminates 5.5 cm above the melquiades. Enteric tube extends into the stomach. The side port is above the level of the gastroesophageal junction. The lungs are well expanded. There is no focal consolidation, edema, or effusion. No pneumothorax. The cardiomediastinal silhouette is within normal limits. No acute osseous abnormality. XR/XR chest 1V IMPRESSION: Clear lungs. Enteric tube side port above the level of the gastroesophageal junction. Suggest advancement.
--- NOTE | ~2021-07-15 | CT_ITS ---
EXAMINATION: CT CHEST WITHOUT CONTRAST CLINICAL INFORMATION: 5 minutes of CPR. Rule out barotrauma. COMPARISON: Chest radiograph done earlier today at 5:23 PM. TECHNIQUE: Multidetector volumetric CT imaging of the chest was done. Axial MIP volume rendering provided. Sagittal and coronal reformatted images were obtained. This CT examination was performed using dose optimization techniques as appropriate, variously including the following: *Automated exposure control *Adjustment of mA and/or kV according to patient size (this includes techniques or standardized protocols for targeted exams where dose is matched to indication/reason for exam; i.e. extremities or head) *Use of iterative reconstruction technique DLP: 484 mGy-cm FINDINGS: LINER MAN: Endotracheal tube terminates at 3.4 cm above the melquiades. The side port of the enteric tube appears to project over the gastroesophageal junction and the tip terminates at the level of the stomach body. Multiple additional external wires, including EKG wires, overlie the patient. LUNGS: There are dependent atelectasis in the lung bases without focal consolidation. There are a few indeterminate pulmonary nodules. For instance, a 0.4 cm nodule in the right upper lobe (5:164), a 0.2 cm nodule in the right upper lobe (5:192) and a 0.3 cm nodule in the left lower lobe (5:366). There are small amount of layering mucus secretions in the mid to lower trachea. MEDIASTINUM: Normal heart size without pericardial effusion or mediastinal hematoma. No lymphadenopathy by size criteria. Normal appearance of the thyroid gland. PLEURA: There is no pleural effusion. No pleural mass or thickening. AXILLA: There is a small amount of air in the superficial soft tissues anterior to the left pectoralis major (5:105). No chest wall mass or lymphadenopathy. UPPER ABDOMEN: Decreased hepatic parenchymal attenuation suggestive of hepatic steatosis. OSSEOUS STRUCTURES: No acute or aggressive osseous abnormalities. CT/CT chest wo con IMPRESSION: No evidence of barotrauma. Mild subsegmental atelectasis. Subcentimeter pulmonary nodules of uncertain etiology. Given patient's age, Fleischner criteria cannot be applied and if clinically indicated, consider a follow-up. Hepatic steatosis.
--- NOTE | 2021-07-15 17:06 | PC.NURSE ---
PT ARRIVED TO ED AFTER EMS CALLED IN PT ARRIVING W/ASTHMA EXAC, PER EMS PT WENT INTO RESP/CARDIAC ARREST UPON ARRIVAL TO ED. WHEN PT ROLLED INTO ED EMT WAS DOING COMPRESSIONS AND THEY HAD THE PTS FIANCE GIVING BVM RESP. 1706- CPR IN PROGRESS, RT CALLED, IN ROOM, PREPARING FOR INTUBATION. #20 IV PLACED IN R HAND. 1709- PULSE CHECK, PT HAS PULSE, SINUS TACH ON MONITOR, PT BEING BAGGED BY RT. INITIAL STAT 84%- 94% 1710- PT IN SINUS TACH, 2D POINT OF ACCESS PLACED, PT HAS #18 IN L AC, RT SUCTIONING BLOOD FROM AIRWAY POC 117, PULSE 176, BP 111/[address] MILTON 20MG ETOMIDATE IN VIA IVP, 100MG SUCCINYCHOLINE IN VIA IVP, DR. MILTON NOW ATTEMPTING INTUBATION 1713 7.5 ET TUBE PLACED #24 @ LIP W/+COLOR CHANGE, AND LUNG, XRAY ORDER, WILL DROP OG I THE MEANTIME, TEMP SENSING JOHNSON WILL. 1717 5MG VERSED IVP GIVEN, PROPOFOL ORDER FOR SEDATION WILL BE GOING IN 1718 PT SINUS TAVH 160, BP 140/93
[2021-07-15] MEDS: Succinylcholine Chloride 200 MG/10 ML VIAL 100 MG IVPUSH (17:12)
[2021-07-15] MEDS: Etomidate 20 MG/10 ML VIAL IVPUSH (17:12)
--- NOTE | 2021-07-15 17:13 | ECG_ITS ---
Test Reason : RESPIRTORY Blood Pressure : / mmHG Vent. Rate : 136 BPM Atrial Rate : 136 BPM P-R Int : 160 ms QRS Dur : 084 ms QT Int : 264 ms P-R-T Axes : 070 090 073 degrees QTc Int : 397 ms Poor data quality, interpretation may be adversely affected Sinus tachycardia Rightward axis Borderline ECG When compared with ECG of 20-APR-2021 15:12, Nonspecific T wave abnormality now evident in Lateral leads Referred By: Saravanan Grimaldo Electronically Signed By:GILMA CHIU MD
[2021-07-15] MEDS: Midazolam HCl/PF 2 MG/2 ML VIAL 5 MG IVPUSH (17:17)
--- NOTE | 2021-07-15 17:20 | ED_ITS ---
HPI - CPR General Chief Complaint: Cardiac Arrest/CPR Stated Complaint: Cardiac Arrest Time Seen by Provider: 07/15/21 17:13 Source: EMS Mode of arrival: EMS Limitations: altered mental status History of Present Illness HPI narrative: Patient arrived in cardiac arrest. Patient was called for an asthma attack given a MDI in the ambulance upon transfer he coded as he was coming out of the ambulance. EMS was doing CPR upon arrival MD complaint: found unresponsive and stopped breathing Onset (ago): minute(s) Place: other (ambulance) Associated symptoms: shortness of breath and other (Asthma attack) Related Data Previous Rx's Medication Instructions Recorded acetaminophen 500 mg tablet 1,000 mg PO QID PRN #14 tab 05/25/21 (Tylenol Extra Strength) cyclobenzaprine 10 mg tablet 10 mg PO Q8H PRN #14 tab 05/25/21 ipratropium 20 mcg-albuterol 100 1 puff INHALATION QID #4 g 07/07/21 mcg/actuation mist for inhalation (Combivent Respimat) albuterol sulfate 2.5 mg (3 mL) INHALATION Q4-6H PRN 07/19/21 #75 ml amoxicillin 875 mg-potassium 1 tab PO BID #4 tab 07/19/21 clavulanate 125 mg tablet epinephrine 0.3 mg/0.3 mL 0.3 mg (0.3 mL) IM Q4H PRN #1 ea 07/19/21 injection, auto-injector fluticasone furoate 200 1 ea INHALATION RDAILY #60 ea 07/19/21 mcg-vilanterol 25 mcg/dose inhalation powder (Breo Ellipta) montelukast 10 mg tablet 10 mg PO BEDTIME 30 Days #30 tab 07/19/21 prednisone 20 mg tablet See Taper PO DAILY #30 tab 07/19/21 albuterol sulfate 2.5 mg (3 mL) INHALATION Q4H PRN 07/21/21 30 Days #360 ml albuterol sulfate 90 mcg/actuation 2 puff INHALATION Q4-6H PRN 7 Days 07/21/21 aerosol inhaler #8.5 g prednisone 10 mg tablet See Rx Instructions PO DAILY 14 07/21/21 Days #24 tab fluticasone 500 mcg-salmeterol 50 1 ea INHALATION Q12H #60 ea 07/25/21 mcg/dose blistr powdr for inhalation (Advair Diskus) Allergies Allergy/AdvReac Type Severity Reaction Status Date / Time unknown antibiotic Allergy Itching Uncoded 07/21/21 10:37 Review of Systems Review of Systems: Yes Unobtainable due to mental condition [facility] Past Medical History Medical History (Updated 07/27/21 @ 00:03 by Nate Franklin) Asthma Asthma Dyspnea Heart attack Status asthmaticus, intrinsic Weakness Social History Social History Household Members: Significant Other Housing: House Do you presently have visiting nurse or other home services: No Unable to assess alcohol history related to: Unable to respond Alcohol intake: current Patient Tobacco Use Status: Current someday Tobacco user service: No Current occupational status: employed Physical Exam Vital Signs: Vital Signs: Last Vital Signs Temp 98.3 F 07/19/21 11:16 Pulse 82 07/19/21 11:24 Resp 18 07/19/21 11:24 BP 102/54 L 07/19/21 11:16 Pulse Ox 98 07/19/21 11:16 BMI result Body Mass Index 25.1 Const: Other: young male with CPR occuring Nutritional Appearance: average ashley dy habitus Limitations: other limitations (coded unresponsive) HENMT: Head: Yes normal to inspection Ears: external ears normal General nose exam: Normal external nose present Mouth: Normal oral and palatal mucosa present and oropharynx normal Throat: Yes posterior oropharynx normal Eyes: General: appearance normal, both eyes and all related structures Neck: Other: supple Neck: Yes normal visual inspection Chest: Chest palpation & inspection: normal inspection of the chest Resp: Other: Diffuses wheezing with bagging Cardio: Other: initially no heart sounds Jugular venous distension: no JVD GI: Inspection: Yes normal to inspection Palpation (GI): Soft to palpation and No hepatosplenomegaly present Auscultation: normal bowel sounds : General: Yes no CVA tenderness Back/Spine/Pelvis: Back: no CVA tenderness Skin: General skin exam: no rashes or lesions noted Neuro: Other: no movement initially then started to breath Extrem: General: Yes normal to inspection Psych: Appearance: grossly normal Course Reevaluation(s) Reevaluation #2: patient with 3-5 minutes of CPR, intubated and pulses returned, high peak pressures as he remains really tight, bedside US shows good cardiac movement, will obtain CT of chest to make sure there was not barotrauma from CPR Time: 18:28 MDM - Cardiac Arrest/CPR Lab Data Result diagrams: 07/19/21 05:58 07/19/21 05:58 Labs: Lab Results 07/15/21 07/15/21 07/15/21 Range/Units 17:11 17:26 17:26 WBC 16.2 H (4.8-10.8) X10*3/uL RBC 5.63 (4.60-5.80) X10*6/uL Hgb 16.0 (14.0-18.0) g/dl Hct 49.8 (42.0-52.0) % MCV 88.5 (80.0-98.0) fL MCH 28.4 (27.0-33.0) pg MCHC 32.1 (31.0-36.0) g/dl RDW 14.3 (11.0-16.0) % Plt Count 259 (160-400) X10*3/uL MPV 9.3 L (9.4-12.4) fL Immature Gran % (Auto) 1.4 H (0.0-0.4) % Neut % (Auto) 54.9 (45-73) % Lymph % (Auto) 32.8 (20-40) % [place] % (Auto) 6.5 (2-11) % Eos % (Auto) 3.8 (0-4) % Baso % (Auto) 0.6 (0-2) % Lymph # (Auto) 5.3 H (1.2-4.9) X10*3/uL [place] # (Auto) 1.1 (0.1-1.2) X10*3/uL Eos # (Auto) 0.6 H (0.0-0.4) X10*3/uL Baso # (Auto) 0.1 (0.0-0.2) X10*3/uL Abs Immat Gran (auto) 0.22 H (0.00-0.03) X10*3/uL Absolute Neuts (auto) 8.9 H (2.0-8.3) x10*3/uL Absolute Nucleated RBC 0.000 (0.0-0.012) X10*3/uL Nucleated RBC % (auto) 0.0 (0.0-0.2) /100WBC Smear Tech's Comments VERIFIED Sodium 142 (135-145) mmol/L Potassium 5.4 H D (3.3-5.1) mmol/L Chloride 105 (96-108) mmol/L Carbon Dioxide 16 L (22-29) mmol/L Anion Gap 26 H (12-20) BUN 11 (9-16) mg/dL Creatinine 1.31 (0.5-1.4) mg/dL Estim Creat Clear Calc 83.9 Estimated GFR > 60 POC Glucose 117 H (60-115) mg/dL Random Glucose 94 (60-115) mg/dL Calcium 9.3 (8.4-10.2) mg/dL Magnesium 2.5 (1.6-2.6) mg/dL Total Bilirubin 0.5 (0.0-1.0) mg/dL AST 114 H (5-37) U/L ALT 183 H (0-40) U/L Alkaline Phosphatase 94 (39-117) U/L Troponin I High Sens (<3.5-35.0) ng/L Total Protein 8.0 (6.5-8.0) g/dL Albumin 4.3 (3.5-5.0) g/dL Urine Color Urine Appearance Urine pH (5.0-8.0) Ur Specific [place] (1.005-1.025) Urine Protein (NEG-TRACE) MG/DL Urine Glucose (UA) (NEG) MG/DL Urine Ketones (NEG) MG/DL Urine Blood (NEG) Urine Nitrite (NEG) Ur Leukocyte Esterase (NEG) Urine RBC (0) /HPF Urine WBC (0-4) /HPF Ur Squamous Epith Cells /LPF Urine Bacteria /LPF Salicylates < 5.0 L (15-30) mg/dL Urine Opiates Screen (Not Detect) Urine Fentanyl Screen (Not Detect) Acetaminophen < 1 (<30) mcg/mL Ur Barbiturates Screen (Not Detect) Ur Phencyclidine Scrn (Not Detect) Ur Amphetamines Screen (Not Detect) U Benzodiazepines Scrn (Not Detect) Urine Cocaine Screen (Not Detect) U Marijuana (THC) Screen (Not Detect) Ethyl Alcohol mg/dL COVID-19 (ESTER) (Negative) COVID-19 Clin Com 07/15/21 07/15/21 07/15/21 Range/Units 17:26 17:26 17:50 WBC (4.8-10.8) X10*3/uL RBC (4.60-5.80) X10*6/uL Hgb (14.0-18.0) g/dl Hct (42.0-52.0) % MCV (80.0-98.0) fL MCH (27.0-33.0) pg MCHC (31.0-36.0) g/dl RDW (11.0-16.0) % Plt Count (160-400) X10*3/uL MPV (9.4-12.4) fL Immature Gran % (Auto) (0.0-0.4) % Neut % (Auto) (45-73) % Lymph % (Auto) (20-40) % [place] % (Auto) (2-11) % Eos % (Auto) (0-4) % Baso % (Auto) (0-2) % Lymph # (Auto) (1.2-4.9) X10*3/uL [place] # (Auto) (0.1-1.2) X10*3/uL Eos # (Auto) (0.0-0.4) X10*3/uL Baso # (Auto) (0.0-0.2) X10*3/uL Abs Immat Gran (auto) (0.00-0.03) X10*3/uL Absolute Neuts (auto) (2.0-8.3) x10*3/uL Absolute Nucleated RBC (0.0-0.012) X10*3/uL Nucleated RBC % (auto) (0.0-0.2) /100WBC Smear Tech's Comments Sodium (135-145) mmol/L Potassium (3.3-5.1) mmol/L Chloride (96-108) mmol/L Carbon Dioxide (22-29) mmol/L Anion Gap (12-20) BUN (9-16) mg/dL Creatinine (0.5-1.4) mg/dL Estim Creat Clear Calc Estimated GFR POC Glucose (60-115) mg/dL Random Glucose (60-115) mg/dL Calcium (8.4-10.2) mg/dL Magnesium (1.6-2.6) mg/dL Total Bilirubin (0.0-1.0) mg/dL AST (5-37) U/L ALT (0-40) U/L Alkaline Phosphatase (39-117) U/L Troponin I High Sens 26.2 (<3.5-35.0) ng/L Total Protein (6.5-8.0) g/dL Albumin (3.5-5.0) g/dL Urine Color Urine Appearance Urine pH (5.0-8.0) Ur Specific [place] (1.005-1.025) Urine Protein (NEG-TRACE) MG/DL Urine Glucose (UA) (NEG) MG/DL Urine Ketones (NEG) MG/DL Urine Blood (NEG) Urine Nitrite (NEG) Ur Leukocyte Esterase (NEG) Urine RBC (0) /HPF Urine WBC (0-4) /HPF Ur Squamous Epith Cells /LPF Urine Bacteria /LPF Salicylates (15-30) mg/dL Urine Opiates Screen (Not Detect) Urine Fentanyl Screen (Not Detect) Acetaminophen (<30) mcg/mL Ur Barbiturates Screen (Not Detect) Ur Phencyclidine Scrn (Not Detect) Ur Amphetamines Screen (Not Detect) U Benzodiazepines Scrn (Not Detect) Urine Cocaine Screen (Not Detect) U Marijuana (THC) Screen (Not Detect) Ethyl Alcohol < 10 mg/dL COVID-19 (ESTER) Negative (Negative) COVID-19 Clin Com See Note 07/15/21 07/15/21 Range/Units 17:50 17:50 WBC (4.8-10.8) X10*3/uL RBC (4.60-5.80) X10*6/uL Hgb (14.0-18.0) g/dl Hct (42.0-52.0) % MCV (80.0-98.0) fL MCH (27.0-33.0) pg MCHC (31.0-36.0) g/dl RDW (11.0-16.0) % Plt Count (160-400) X10*3/uL MPV (9.4-12.4) fL Immature Gran % (Auto) (0.0-0.4) % Neut % (Auto) (45-73) % Lymph % (Auto) (20-40) % [place] % (Auto) (2-11) % Eos % (Auto) (0-4) % Baso % (Auto) (0-2) % Lymph # (Auto) (1.2-4.9) X10*3/uL [place] # (Auto) (0.1-1.2) X10*3/uL Eos # (Auto) (0.0-0.4) X10*3/uL Baso # (Auto) (0.0-0.2) X10*3/uL Abs Immat Gran (auto) (0.00-0.03) X10*3/uL Absolute Neuts (auto) (2.0-8.3) x10*3/uL Absolute Nucleated RBC (0.0-0.012) X10*3/uL Nucleated RBC % (auto) (0.0-0.2) /100WBC Smear Tech's Comments Sodium (135-145) mmol/L Potassium (3.3-5.1) mmol/L Chloride (96-108) mmol/L Carbon Dioxide (22-29) mmol/L Anion Gap (12-20) BUN (9-16) mg/dL Creatinine (0.5-1.4) mg/dL Estim Creat Clear Calc Estimated GFR POC Glucose (60-115) mg/dL Random Glucose (60-115) mg/dL Calcium (8.4-10.2) mg/dL Magnesium (1.6-2.6) mg/dL Total Bilirubin (0.0-1.0) mg/dL AST (5-37) U/L ALT (0-40) U/L Alkaline Phosphatase (39-117) U/L Troponin I High Sens (<3.5-35.0) ng/L Total Protein (6.5-8.0) g/dL Albumin (3.5-5.0) g/dL Urine Color STRAW Urine Appearance HAZY Urine pH 6.0 (5.0-8.0) Ur Specific [place] 1.020 (1.005-1.025) Urine Protein 2+ H (NEG-TRACE) MG/DL Urine Glucose (UA) 250 H (NEG) MG/DL Urine Ketones NEG (NEG) MG/DL Urine Blood 3+ H (NEG) Urine Nitrite NEG (NEG) Ur Leukocyte Esterase NEG (NEG) Urine RBC 50-75 H (0) /HPF Urine WBC 0 (0-4) /HPF Ur Squamous Epith Cells NONE /LPF Urine Bacteria 1+ /LPF Salicylates (15-30) mg/dL Urine Opiates Screen Not Detected (Not Detect) Urine Fentanyl Screen Not Detected (Not Detect) Acetaminophen (<30) mcg/mL Ur Barbiturates Screen Not Detected (Not Detect) Ur Phencyclidine Scrn Not Detected (Not Detect) Ur Amphetamines Screen Not Detected (Not Detect) U Benzodiazepines Scrn Not Detected (Not Detect) Urine Cocaine Screen Not Detected (Not Detect) U Marijuana (THC) Screen POSITIVE H (Not Detect) Ethyl Alcohol mg/dL COVID-19 (ESTER) (Negative) COVID-19 Clin Com Procedures Procedure Narrative Procedure Narrative: Patient intubated with direct visualization using Mac 4 and 7.5cm ETT, 23 at [facility] Critical Care Time Critical Care Time Attestation: I spent 45 minutes of critical care, with interventions, assessments, speaking to patient, consultants, and family. Discharge Plan Discharge Clinical Impression: Cardiac arrest, Acute respiratory failure, Asthma attack Patient Disposition: Admitted As Inpatient Discharge Date/Time: 07/15/21 20:00
[2021-07-15] MEDS: Albuterol Sulfate (0.083%) 2.5 MG/3 ML VIAL.NEB 10 MG INHALE (17:26)
[2021-07-15] MEDS: methylPREDNISolone Sod Succ 125 MG/2 ML VIAL IVPUSH ×2 (17:31→23:10)
--- NOTE | 2021-07-15 17:31 | PC.NURSE ---
ng and ett confirmed by ausc and cxr
[2021-07-15] MEDS: Magnesium Sulfate/H2O 2 GM/50 ML PIGGYBACK IV (17:35)
[2021-07-15] MEDS: Rocuronium Bromide 50 MG/5 ML VIAL IVPUSH ×2 (17:35→18:49)
--- NOTE | 2021-07-15 17:37 | PC.NURSE ---
18g lac and 20g r hand
[2021-07-15 17:43] LABS: Basophils Absolute Auto 0.1 X10*3/uL (0.0-0.2); Basophils Percent Auto 0.6 % (0-2); Eosinophils Absolute Auto 0.6 X10*3/uL (0.0-0.4); Eosinophils Percent Auto 3.8 % (0-4); Hematocrit 49.8 % (42.0-52.0); Imm Gran Abs Auto 0.22 X10*3/uL (0.00-0.03); Imm Gran Pct Auto 1.4 % (0.0-0.4); Lymphocytes Absolute Auto 5.3 X10*3/uL (1.2-4.9); Lymphocytes Percent Auto 32.8 % (20-40); MANUAL DIFF FLAG SCAN; Mean Corpuscular HGB Conc 32.1 g/dl (31.0-36.0); Mean Corpuscular Hemoglobin 28.4 pg (27.0-33.0); Mean Corpuscular Volume 88.5 fL (80.0-98.0); Mean Platelet Volume 9.3 fL (9.4-12.4); Monocytes Absolute Auto 1.1 X10*3/uL (0.1-1.2); Monocytes Percent Auto 6.5 % (2-11); Neutrophils Absolute Auto 8.9 x10*3/uL (2.0-8.3); Neutrophils Percent Auto 54.9 % (45-73); Platelet Count 259 X10*3/uL (160-400); Red Blood Count 5.63 X10*6/uL (4.60-5.80); Red Cell Distribution Width 14.3 % (11.0-16.0); SCAN SMEAR FLAG 1; White Blood Count 16.2 X10*3/uL (4.8-10.8)
--- NOTE | 2021-07-15 17:43 | PC.NURSE ---
propofol drip started at 15mcg
[2021-07-15 17:50] LABS: Ethanol < 10 mg/dL
[2021-07-15 17:59] LABS: Troponin-I High Sensitivity 26.2 ng/L (<3.5-35.0)
[2021-07-15 18:01] LABS: Acetaminophen LAB < 1 mcg/mL (<30); Alanine Aminotransferase 183 U/L (0-40); Albumin Level 4.3 g/dL (3.5-5.0); Alkaline Phosphatase 94 U/L (39-117); Aspartate Amino Transferase 114 U/L (5-37); Bilirubin Total 0.5 mg/dL (0.0-1.0); Blood Urea Nitrogen 11 mg/dL (9-16); Calcium 9.3 mg/dL (8.4-10.2); Creatinine Clr Calc Pharmacy 83.9; Estimated Glomerular Filt Rate > 60; Glucose Random 94 mg/dL (60-115); Magnesium 2.5 mg/dL (1.6-2.6); Salicylate < 5.0 mg/dL (15-30)
[2021-07-15 18:03] LABS: Appearance Urine HAZY; Color Urine STRAW; Glucose Urine UA 250 MG/DL (NEG); Leukocyte Esterase Urine NEG (NEG); Nitrite Urine NEG (NEG); UACC Culture Trigger NO; Urine Blood 3+ (NEG); Urine Ketones NEG (NEG); Urine Protein 2+ MG/DL (NEG-TRACE)
--- NOTE | 2021-07-15 18:04 | PM.CCHP ---
History of Present Illness Date of Service: 07/15/21 Attending physician on admission: Wanda Barry Chief Complaint: sob 30-year-old male with frequent presentations of hypoxic respiratory failure/status asthmaticus and more of the same today but actually had respiratory arrest at the door requiring brief resuscitation he was initially in rapid atrial fibrillation with heart rates as high as 180 converted spontaneously to sinus tachycardia rate 145 post intubation and initially there was no evidence of of chest movement clearly was severely air trapping with severe did diffuse small airway bronchospasm none and the he was started on a a paralytic agent and we had to switch from volume control to pressure control and continually reduced the inspiratory time to allow him for much greater expiratory time and then eventually expert volume started to increase the no from about the 100-150 cc eventually 250 cc and hopefully this was going to allow gradually improving alveolar ventilation which it did end-tidal CO2 is were starting to diminish from approximately 80 into the low 60s at which point his blood pressure began to stabilize as well and my bedside echocardiogram demonstrated normal anatomy with normal LV and RV size and function no primary valve or pericardial disease this appeared to be all severe reactive airway disease So he started high-dose oral steroid actually intravenous parental steroid along with very aggressive infrequent shortening as short-acting a sympathomimetic bronchodilator treatments and of course he had an elevated lactate Margie both from his in a work of breathing as well as from the sympathomimetics Both chest x-ray and chest CT scan showed no evidence of infiltrate occluded there was no aspiration and there was definitely no evidence of a even an occult pneumothorax or pneumomediastinum Review of Systems Review of Systems: Yes unobtainable due to endotracheal tube PMFSH Past Medical History Medical History (Updated 07/16/21 @ 08:53 by Wanda Barry MD) Asthma Heart attack Status asthmaticus, intrinsic Social History Social History Household Members: Significant Other Housing: House Do you presently have visiting nurse or other home services: No Unable to assess alcohol history related to: Unable to respond Alcohol intake: current Patient Tobacco Use Status: Current someday Tobacco user Use of substances other than those prescribed or required for medical reasons: Unable to respond Currently Displaying Signs/Symptoms of Drug Intoxication Withdrawal: No Advance Directives: No Advance Directives Information Provided: Yes Do you have thoughts of harming others: None Do you have a plan to hurt others: No Plan Recently lost weight without trying: Unsure Poor oral hygiene: No service: No Current occupational status: employed Meds Allergies Allergy/AdvReac Type Severity Reaction Status Date / Time unknown antibiotic Allergy Itching Uncoded 03/03/21 11:26 Active Medications: Current Medications Magnesium Sulfate (Magnesium Sulfate/H2o) 2 gm in 50 mls @ 25 mls/hr IV ONCE ONE Stop: 07/15/21 19:19 Last Admin: 07/15/21 17:35 Dose: 25 mls/hr Documented by: Propofol (Diprivan) 1,000 mg in 100 mls @ 0 mls/hr IVCONT .Q0M DUSTY; Protocol Physical Exam Vital Signs: Vital Signs: Last Vital Signs Pulse 170 H 07/15/21 17:27 Resp 20 07/15/21 17:27 BMI result Body Mass Index 25.1 And initially no chest movement with no volume until pressure control with graduated did peep reduced inspiratory time and increased expiratory time allowed him to reduce his auto PEEP to the point where blood pressure was restored and thus far he had downgoing toes no Babinski's normal tone normal pupil reactivity so I doubt if there was any underlying nonconvulsive status epilepticus and he was warm and well perfused with no acrocyanosis Results Labs CBC and Chem 7: 07/16/21 03:20 07/16/21 03:20 Labs: Laboratory Results - last 24 hr 07/15/21 07/15/21 07/15/21 17:26 17:26 17:26 Estim Creat Clear Calc 83.9 Estimated GFR > 60 Random Glucose 94 Calcium 9.3 Magnesium 2.5 Total Bilirubin 0.5 AST 114 H ALT 183 H Alkaline Phosphatase 94 Troponin I High Sens 26.2 Total Protein 8.0 Albumin 4.3 Salicylates < 5.0 L Acetaminophen < 1 Ethyl Alcohol < 10 Imaging Radiologist's Impressions: Impressions Chest X-Ray 07/15/21 17:26 IMPRESSION: Clear lungs. Enteric tube side port above the level of the gastroesophageal junction. Suggest advancement. Assessment and Plan (1) Cardiac arrest: Status: Acute (2) Acute respiratory failure: Qualifiers: Respiratory failure complication: unspecified whether with hypoxia or hypercapnia Qualified Code(s): J96.00 - Acute respiratory failure, unspecified whether with hypoxia or hypercapnia Status: Acute (3) Status asthmaticus, intrinsic: Status: Acute (4) Severe persistent reactive airway disease with acute exacerbation: Status: Acute (5) Paroxysmal atrial fibrillation: Status: Acute Continue ventilator support in the pressure control mode and follow-up arterial blood gas to ensure that we are improving his alveolar ventilation diminishing space and support blood pressure as needed and because of the extent of air trapping and at this point no empiric antibiotics to steroids and short-acting bronchodilator therapy continued propofol sedation with the addition of fentanyl and rocuronium is needed to allow better vent ventilation and if there is a temperature spike he could be cultured and empiric antibiotic for community-acquired infection could be initiated
[2021-07-15 18:11] LABS: SLIDE REVIEW VERIFIED
[2021-07-15 18:12] LABS: Anion Gap 26 (12-20); Carbon Dioxide 16 mmol/L (22-29); Chloride 105 mmol/L (96-108); Potassium 5.4 mmol/L (3.3-5.1); Sodium 142 mmol/L (135-145)
[2021-07-15 18:17] LABS: COVID-19 Test Negative (Negative)
[2021-07-15 18:21] LABS: Amphetamine Screen Urine Not Detected (Not Detect); Bacteria Urine 1+ /LPF; Barbiturates, Urine Not Detected (Not Detect); Benzodiazepines Screen Urine Not Detected (Not Detect); Cannabinoid Screen Urine POSITIVE (Not Detect); Cocaine Screen Urine Not Detected (Not Detect); Fentanyl, urine Not Detected (Not Detect); Opiate Screen Urine Not Detected (Not Detect); Phencyclidine Screen Urine Not Detected (Not Detect); RBC Urine 50-75 /HPF (0); WBC Urine 0 /HPF (0-4)
--- NOTE | 2021-07-15 18:48 | PC.NURSE ---
return from ct, pt starting to move around and fight vent. additional dose of zaheer ordered by .
--- NOTE | 2021-07-15 18:57 | MHC.CM.PN ---
CM unable to meet with patient at this time, as patient is intubated. ICU bed pending. CM will follow for d/c needs.
--- NOTE | 2021-07-15 18:59 | PC.NURSE ---
report given to icu. plan to transport in 15 min. report given to lexi corbett.
--- NOTE | 2021-07-15 19:27 | PC.NURSE ---
REPORT GIVEN BY PREVIOUS, LABS BEING DRAWN AT THIS TIME. PT AWAITING FOR TRANSPORT.
[2021-07-15 19:43] LABS: Glucose, Whole Blood 117 mg/dL (60-115)
[2021-07-15] MEDS: fentaNYL citrate/NS 1,000 MCG/100 ML PLAST..BAG 10 MCG IVCONT (20:06)
--- NOTE | 2021-07-15 20:11 | MHC.CM.PN ---
CM unable to interview patient. No IMM necessary. No HCP. S/P cardiopulmonary arrest. Hx asthma. Pt had 3-5 minutes of CPR upon arrival at [facility] Ambulance called for asthma attack . Pt is intubated/vented/sedated. Interviewed conducted with Werner Negron. Kerline states she and Will live together with their 4 children, ages 12,10,6 and 5. Kerline states they must move from their current apartment by the end of the month and are awaiting penitentiary placement. Kerline tells CM that Will was supposed to begin a new job at the [employer] on Sunday. Kerline tells CM that Will has a PCP appointment at the end of the month with a provider at [facility] in [place]. Kerline cannot remember the provider's name. Kerline tells CM that Will has a hx of asthma and panic attacks. CM contact cared given. Kerline escorted to ICU waiting room by CM. Pt transferred to ICU. Kerline aware that CM will follow Will while he is in the hospital. Enc Kerline to speak with ICU doctor about Will's plan of care. D/C plan unsure at this time pending hospital course. Will re-evaluate daily during ICU rounds. CM to follow for d/c needs.
[2021-07-15] MEDS: propofoL 1,000 MG/100 ML VIAL 23.13 MG IVCONT (20:31)
[2021-07-15] MEDS: KCl 20 mEq in 5% Dex/0.45% Sod 20 MEQ/1,000 ML IV.SOLN 125 MEQ IVCONT (20:38)
[2021-07-15] MEDS: Heparin Sodium,Porcine 5,000 UNIT/ML VIAL 5000 UNIT SUBCUT (20:38)
[2021-07-15 21:06] LABS: ABG Base Excess -4.5 mmol/L; ABG HCO3 22 mmol/L (22-26); ABG pCO2 46 mmHg (32-45); ABG pCO2 TC 45 mmHg (32-45); ABG pH 7.28 (7.35-7.45); ABG pH TC 7.29 (7.35-7.45); ABG pO2 103 mmHg (83-108); ABG pO2 TC 100 (83-108)
[2021-07-15 21:47] LABS: Anion Gap 18 (12-20); Blood Urea Nitrogen 12 mg/dL (9-16); Calcium 8.7 mg/dL (8.4-10.2); Carbon Dioxide 22 mmol/L (22-29); Chloride 105 mmol/L (96-108); Creatinine Clr Calc Pharmacy 83.3; Estimated Glomerular Filt Rate > 60; Glucose Random 148 mg/dL (60-115); Sodium 141 mmol/L (135-145)
[2021-07-15] MEDS: 0.9 % Sodium Chloride 1,000 ML 80 ML IVCONT (22:29)
[2021-07-15] MEDS: fentaNYL citrate/NS 1,000 MCG/100 ML PLAST..BAG 15 MCG IVCONT (23:09)
[2021-07-15] MEDS: 0.9 % Sodium Chloride Flush 3 ML SYRINGE IVFLUSH (23:10)
[2021-07-16] VITALS (38 sets, daily range): BP systolic 88–143; BP diastolic 28–85; PULSE 44–120; RESP 9–30; TEMP 29.4–38.2; O2SAT 91–99; BMI 26.4
[2021-07-16] MEDS: propofoL 1,000 MG/100 ML VIAL 20.82 MG IVCONT (00:34)
--- NOTE | 2021-07-16 01:17 | PC.NURSE ---
Addendum entered by Juany Aguiar RN 07/16/21 05:08: Attempts to wean sedation met with vent dyssynchrony- stacks breaths, RR 30s, desaturates. Pt intermittently emerges from sedation, tracks movement, reaches for ETT. At ~0300, tmax 100.8 core, HR 110s, SpO2 86% on 30% FiO2, UOP 15-20 ml/hr- PA notified. New orders for CBC, BMP, LA, VBG, and sputum culture. PA aware of new lab/critical results- orders for 650 mg PO acetaminophen x1, 2L IV NS bolus, 3 grams IV unasyn q8hrs, 10 mg INH albuterol x1. ~0500, SBP 80s, PA aware, currently still has 1L NS bolus running at this time. Original Note: Pt admitted to ICU at approx 2000 from ED. Pt intubated in ED, ETT #7.5, 25 cm at lip. On AC/PC rate 22, 22/8, FiO2 titrated to 30%. Upon initial assessment, RR 30-40s, pt coughing/gagging, biting ETT, copious oral secretions. Propofol drip maxed, fentanyl drip started per emar with good effect- will titrate sedation down as tolerated. ABGS done, PA aware of results. NGT/mcdaniel place, UOP approx 100 ml/hr. Afebrile. NSR/ST on tele, HR 90-100s. SBP WNL. Skin intact. Significant other at bedside and updated on plan of care.
[2021-07-16 01:52] LABS: ABG Refer to POC result
[2021-07-16] MEDS: Acetaminophen 325 MG TABLET 650 MG PO (03:12)
[2021-07-16 03:26] LABS: VBG Base Excess -4.6 mmol/L; VBG HCO3 23 mmol/L (22-26); VBG pCO2 52 mmHg; VBG pH 7.25 (7.32-7.43); VBG pO2 68 mmHg
[2021-07-16 03:48] LABS: Basophils Percent Auto 0.1 % (0-2); Hemoglobin 16.2 g/dl (14.0-18.0); Imm Gran Pct Auto 1.5 % (0.0-0.4); Lymphocytes Absolute Auto 0.6 X10*3/uL (1.2-4.9); Lymphocytes Percent Auto 3.3 % (20-40); MANUAL DIFF FLAG SCAN; Mean Corpuscular HGB Conc 33.8 g/dl (31.0-36.0); Mean Corpuscular Hemoglobin 28.3 pg (27.0-33.0); Mean Corpuscular Volume 83.9 fL (80.0-98.0); Mean Platelet Volume 8.7 fL (9.4-12.4); Monocytes Absolute Auto 0.5 X10*3/uL (0.1-1.2); Monocytes Percent Auto 2.4 % (2-11); Neutrophils Absolute Auto 18.3 x10*3/uL (2.0-8.3); Neutrophils Percent Auto 92.7 % (45-73); Platelet Count 278 X10*3/uL (160-400); Red Blood Count 5.72 X10*6/uL (4.60-5.80); Red Cell Distribution Width 14.2 % (11.0-16.0); SCAN SMEAR FLAG 1; White Blood Count 19.7 X10*3/uL (4.8-10.8)
[2021-07-16] MEDS: Albuterol Sulfate (0.083%) 2.5 MG/3 ML VIAL.NEB INHALE (03:48)
[2021-07-16] MEDS: Ampicillin Sodium/Sulbactam Na 3 GM in 0.9 % Sodium Chloride 100 ML IV ×3 (03:58→20:58)
[2021-07-16 04:01] LABS: Lactic Acid 5.1 mmol/L (0.5-2.0)
[2021-07-16] MEDS: Lactated Ringers 2,000 ML 999 ML IV (04:13)
[2021-07-16 04:15] LABS: SLIDE REVIEW VERIFIED
[2021-07-16 04:19] LABS: Alanine Aminotransferase 260 U/L (0-40); Albumin Level 4.3 g/dL (3.5-5.0); Alkaline Phosphatase 84 U/L (39-117); Anion Gap 20 (12-20); Aspartate Amino Transferase 138 U/L (5-37); Bilirubin Total 0.6 mg/dL (0.0-1.0); Blood Urea Nitrogen 18 mg/dL (9-16); Calcium 9.4 mg/dL (8.4-10.2); Carbon Dioxide 19 mmol/L (22-29); Chloride 105 mmol/L (96-108); Creatinine Clr Calc Pharmacy 72.3; Estimated Glomerular Filt Rate 55; Glucose Random 131 mg/dL (60-115); Potassium 6.1 mmol/L (3.3-5.1); Sodium 138 mmol/L (135-145); Total Protein 7.6 g/dL (6.5-8.0)
[2021-07-16] MEDS: 0.9 % Sodium Chloride 2,000 ML 999 ML IV (04:30)
--- NOTE | 2021-07-16 04:35 | PM.CCPN ---
Subjective Subjective Date of Service: 07/16/21 <RONNI Conley - Last Filed: 07/16/21 21:41> Critical Care Time (minutes): 60 <RONNI Conley - Last Filed: 07/16/21 21:41> Comment: Clinical Precedent to this date: ?22-year-old COVID negative patient was admitted to the ICU post cardiac arrest, reportedly the patient had been having an asthma attack and was given breathing treatments in the ambulance but then coded as he was entering the emergency room. Around 3 in the morning, the patient's oxygen requirements went up and his oxygen sat went down therefore we had to increase the FiO2 from 30% to 50%, an ABG was drawn this showed a pH of 7.248 pCO2 of 51.8 (increased), mildly tachycardic at 110 beats per minute with a new onset fever of 100.8. Focused Sepsis exam done at 3 a.m. on 09/16/2020 VS: ?Blood pressure has been decreasing currently 08/08/2054, heart rate 110, respirations 30, ventilation settings pressure control peep of 8 FiO2 of 50%. General:? Sedated, diaphoretic Skin:? Sweaty otherwise intact Cardiac:? Clear S1-S2, no murmurs rubs or gallops. Pulmonary:? Coarseness bilaterally and throughout at the bases, upper wheezing bilaterally, no crackles or rales.? No defined rhonchi. Vascular:? 2+ pulses upper and lower extremities distally.? Less than 2nd capillary refill of the finger toes bilaterally. SIGNIFICANT LABORATORY DATA:? Reviewed and will be repeated. Most recent labs revealed a white count of 19.7 increased from 16, H&H of 16 and 48 REVIEW OF IMAGES: ?Reviewed; consider CT in am ASSESSMENT AND PLAN: 1.? Acute sepsis, I suspect underlying aspiration pneumonitis 2.? Hypoxic respiratory failure the setting of asthma exacerbation 3.? Respiratory acidosis in the setting of the above 4.? Acute hyperkalemia (MIGUEL ANGEL) 5.? Hemoconcentration and dehydration 6.? Acute kidney injury due to volume depletion and fever loses 1.52 (increased from 1.3) 7. Leukocytosis in the setting of 1. and a steroid administration ? Tylenol via OGT, ice, I will repeat labs and lactic acid, he did have a white count, lactic acid initially had not been checked, he did have blood cultures, I will give him empiric Unasyn, order sputum culture and Gram stain, place him on DuoNeb schedule with albuterol p.r.n. and give him a total of 30 cc/kilo of normal saline.? Continue with steroids. ? -will discontinue IV fluids with potassium; repeat lactic acid in 2 hrs and repeat sepsis exam at 9 am GI PROPHYLAXIS: ?Ppi DVT PROPHYLAXIS: ?Heparin ? Critical care time used for critical evaluation of this patient, diagnosis, treatment and coordination of care, review her records and documentation TOTAL CRITICAL CARE TIME 60 MIN. Patient's care was discussed in detail with Dr. Barry.? He is aware of all the above as well as the plan of care for this patient.? <RONNI Conley - Last Filed: 07/16/21 21:41> Physical Exam Vital Signs: Vital Signs: Last Vital Signs Temp 100.2 F 07/16/21 04:00 Pulse 95 07/16/21 04:00 Resp 21 H 07/16/21 04:00 BP 105/40 L 07/16/21 04:00 Pulse Ox 95 07/16/21 04:00 BMI result Body Mass Index 25.1 <RONNI Conley - Last Filed: 07/16/21 21:41> Objective Data Labs CBC & Chem 7: : 07/17/21 05:22 07/17/21 05:22 <RONNI Conley - Last Filed: 07/16/21 21:41> Labs: Laboratory Results - last 24 hr 07/15/21 07/15/21 07/15/21 17:11 17:26 17:26 WBC 16.2 H RBC 5.63 Hgb 16.0 Hct 49.8 MCV 88.5 MCH 28.4 MCHC 32.1 RDW 14.3 Plt Count 259 MPV 9.3 L Immature Gran % (Auto) 1.4 H Neut % (Auto) 54.9 Lymph % (Auto) 32.8 [facility] % (Auto) 6.5 Eos % (Auto) 3.8 Baso % (Auto) 0.6 Lymph # (Auto) 5.[address] [facility] # (Auto) 1.1 Eos # (Auto) 0.6 H Baso # (Auto) 0.1 Abs Immat Gran (auto) 0.22 H Absolute Neuts (auto) 8.9 H Absolute Nucleated RBC 0.000 Nucleated RBC % (auto) 0.0 Smear Tech's Comments VERIFIED O2 Saturation ABG pH at Pt Temp ABG pH (Temp Correct) ABG pCO2 at Pt Temp ABG pCO2 (Temp Corrct ABG pO2 at Pt Temp ABG pO2 (Temp Correct ABG HCO3 ABG Base Excess (Actual) VBG pH VBG pCO2 VBG pO2 VBG HCO3 VBG O2 Saturation VBG Base Excess Sodium 142 Potassium 5.4 H D Chloride 105 Carbon Dioxide 16 L Anion Gap 26 H BUN 11 Creatinine 1.31 Estim Creat Clear Calc 83.9 Estimated GFR > 60 POC Glucose 117 H Random Glucose 94 Lactic Acid Calcium 9.3 Magnesium 2.5 Total Bilirubin 0.5 AST 114 H ALT 183 H Alkaline Phosphatase 94 Troponin I High Sens Total Protein 8.0 Albumin 4.3 Urine Color Urine Appearance Urine pH Ur Specific Rye Urine Protein Urine Glucose (UA) Urine Ketones Urine Blood Urine Nitrite Ur Leukocyte Esterase Urine RBC Urine WBC Ur Squamous Epith Cells Urine Bacteria Salicylates < 5.0 L Urine Opiates Screen Urine Fentanyl Screen Acetaminophen < 1 Ur Barbiturates Screen Ur Phencyclidine Scrn Ur Amphetamines Screen U Benzodiazepines Scrn Urine Cocaine Screen U Marijuana (THC) Screen Ethyl Alcohol COVID-19 (ESTER) COVID-19 Clin Com 07/15/21 07/15/21 07/15/21 17:26 17:26 17:50 WBC RBC Hgb Hct MCV MCH MCHC RDW Plt Count MPV Immature Gran % (Auto) Neut % (Auto) Lymph % (Auto) [facility] % (Auto) Eos % (Auto) Baso % (Auto) Lymph # (Auto) [facility] # (Auto) Eos # (Auto) Baso # (Auto) Abs Immat Gran (auto) Absolute Neuts (auto) Absolute Nucleated RBC Nucleated RBC % (auto) Smear Tech's Comments O2 Saturation ABG pH at Pt Temp ABG pH (Temp Correct) ABG pCO2 at Pt Temp ABG pCO2 (Temp Corrct ABG pO2 at Pt Temp ABG pO2 (Temp Correct ABG HCO3 ABG Base Excess (Actual) VBG pH VBG pCO2 VBG pO2 VBG HCO3 VBG O2 Saturation VBG Base Excess Sodium Potassium Chloride Carbon Dioxide Anion Gap BUN Creatinine Estim Creat Clear Calc Estimated GFR POC Glucose Random Glucose Lactic Acid Calcium Magnesium Total Bilirubin AST ALT Alkaline Phosphatase Troponin I High Sens 26.2 Total Protein Albumin Urine Color Urine Appearance Urine pH Ur Specific Rye Urine Protein Urine Glucose (UA) Urine Ketones Urine Blood Urine Nitrite Ur Leukocyte Esterase Urine RBC Urine WBC Ur Squamous Epith Cells Urine Bacteria Salicylates Urine Opiates Screen Urine Fentanyl Screen Acetaminophen Ur Barbiturates Screen Ur Phencyclidine Scrn Ur Amphetamines Screen U Benzodiazepines Scrn Urine Cocaine Screen U Marijuana (THC) Screen Ethyl Alcohol < 10 COVID-19 (ESTER) Negative COVID-19 Clin Com See Note 07/15/21 07/15/21 07/15/21 17:50 17:50 21:00 WBC RBC Hgb Hct MCV MCH MCHC RDW Plt Count MPV Immature Gran % (Auto) Neut % (Auto) Lymph % (Auto) [facility] % (Auto) Eos % (Auto) Baso % (Auto) Lymph # (Auto) [facility] # (Auto) Eos # (Auto) Baso # (Auto) Abs Immat Gran (auto) Absolute Neuts (auto) Absolute Nucleated RBC Nucleated RBC % (auto) Smear Tech's Comments O2 Saturation 97.0 ABG pH at Pt Temp 7.28 L ABG pH (Temp Correct) 7.29 L ABG pCO2 at Pt Temp 46 H ABG pCO2 (Temp Corrct 45 ABG pO2 at Pt Temp 103 ABG pO2 (Temp Correct 100 ABG HCO3 22 ABG Base Excess (Actual) -4.5 VBG pH VBG pCO2 VBG pO2 VBG HCO3 VBG O2 Saturation VBG Base Excess Sodium Potassium Chloride Carbon Dioxide Anion Gap BUN Creatinine Estim Creat Clear Calc Estimated GFR POC Glucose Random Glucose Lactic Acid Calcium Magnesium Total Bilirubin AST ALT Alkaline Phosphatase Troponin I High Sens Total Protein Albumin Urine Color STRAW Urine Appearance HAZY Urine pH 6.0 Ur Specific Rye 1.020 Urine Protein 2+ H Urine Glucose (UA) 250 H Urine Ketones NEG Urine Blood 3+ H Urine Nitrite NEG Ur Leukocyte Esterase NEG Urine RBC 50-75 H Urine WBC 0 Ur Squamous Epith Cells NONE Urine Bacteria 1+ Salicylates Urine Opiates Screen Not Detected Urine Fentanyl Screen Not Detected Acetaminophen Ur Barbiturates Screen Not Detected Ur Phencyclidine Scrn Not Detected Ur Amphetamines Screen Not Detected U Benzodiazepines Scrn Not Detected Urine Cocaine Screen Not Detected U Marijuana (THC) Screen POSITIVE H Ethyl Alcohol COVID-19 (ESTER) COVID-19 Clin Com 07/15/21 07/16/21 07/16/21 21:21 03:20 03:20 WBC 19.7 H RBC 5.72 Hgb 16.2 Hct 48.0 MCV 83.9 MCH 28.3 MCHC 33.8 RDW 14.2 Plt Count 278 MPV 8.7 L Immature Gran % (Auto) 1.5 H Neut % (Auto) 92.7 H Lymph % (Auto) 3.[address] [facility] % (Auto) 2.4 Eos % (Auto) 0.0 Baso % (Auto) 0.1 Lymph # (Auto) 0.[address] [facility] # (Auto) 0.5 Eos # (Auto) 0.0 Baso # (Auto) 0.0 Abs Immat Gran (auto) 0.30 H Absolute Neuts (auto) 18.3 H Absolute Nucleated RBC 0.000 Nucleated RBC % (auto) 0.0 Smear Tech's Comments VERIFIED O2 Saturation ABG pH at Pt Temp ABG pH (Temp Correct) ABG pCO2 at Pt Temp ABG pCO2 (Temp Corrct ABG pO2 at Pt Temp ABG pO2 (Temp Correct ABG HCO3 ABG Base Excess (Actual) VBG pH VBG pCO2 VBG pO2 VBG HCO3 VBG O2 Saturation VBG Base Excess Sodium 141 138 Potassium 4.0 D 6.1 H* D Chloride 105 105 Carbon Dioxide 22 19 L Anion Gap 18 20 BUN 12 18 H Creatinine 1.32 1.52 H Estim Creat Clear Calc 83.3 72.3 Estimated GFR > 60 55 POC Glucose Random Glucose 148 H D 131 H Lactic Acid Calcium 8.7 D 9.4 D Magnesium Total Bilirubin 0.6 AST 138 H ALT 260 H Alkaline Phosphatase 84 Troponin I High Sens Total Protein 7.6 Albumin 4.3 Urine Color Urine Appearance Urine pH Ur Specific Rye Urine Protein Urine Glucose (UA) Urine Ketones Urine Blood Urine Nitrite Ur Leukocyte Esterase Urine RBC Urine WBC Ur Squamous Epith Cells Urine Bacteria Salicylates Urine Opiates Screen Urine Fentanyl Screen Acetaminophen Ur Barbiturates Screen Ur Phencyclidine Scrn Ur Amphetamines Screen U Benzodiazepines Scrn Urine Cocaine Screen U Marijuana (THC) Screen Ethyl Alcohol COVID-19 (ESTER) COVID-19 Clin Com 07/16/21 07/16/21 03:20 03:20 WBC RBC Hgb Hct MCV MCH MCHC RDW Plt Count MPV Immature Gran % (Auto) Neut % (Auto) Lymph % (Auto) [facility] % (Auto) Eos % (Auto) Baso % (Auto) Lymph # (Auto) [facility] # (Auto) Eos # (Auto) Baso # (Auto) Abs Immat Gran (auto) Absolute Neuts (auto) Absolute Nucleated RBC Nucleated RBC % (auto) Smear Tech's Comments O2 Saturation ABG pH at Pt Temp ABG pH (Temp Correct) ABG pCO2 at Pt Temp ABG pCO2 (Temp Corrct ABG pO2 at Pt Temp ABG pO2 (Temp Correct ABG HCO3 ABG Base Excess (Actual) VBG pH 7.25 L VBG pCO2 52 VBG pO2 68 VBG HCO3 23 VBG O2 Saturation 89.0 VBG Base Excess -4.6 Sodium Potassium Chloride Carbon Dioxide Anion Gap BUN Creatinine Estim Creat Clear Calc Estimated GFR POC Glucose Random Glucose Lactic Acid 5.1 H* Calcium Magnesium Total Bilirubin AST ALT Alkaline Phosphatase Troponin I High Sens Total Protein Albumin Urine Color Urine Appearance Urine pH Ur Specific Rye Urine Protein Urine Glucose (UA) Urine Ketones Urine Blood Urine Nitrite Ur Leukocyte Esterase Urine RBC Urine WBC Ur Squamous Epith Cells Urine Bacteria Salicylates Urine Opiates Screen Urine Fentanyl Screen Acetaminophen Ur Barbiturates Screen Ur Phencyclidine Scrn Ur Amphetamines Screen U Benzodiazepines Scrn Urine Cocaine Screen U Marijuana (THC) Screen Ethyl Alcohol COVID-19 (ESTER) COVID-19 Clin Com <RONNI Conley - Last Filed: 07/16/21 21:41> Quality Stroke Does the patient have a stroke diagnosis?: No <RONNI Conley - Last Filed: 07/16/21 21:41> VTE Prior VTE?: No <RONNI Conley - Last Filed: 07/16/21 21:41> VTE Risk Level:: Medical - moderate - high <RONNI Conley - Last Filed: 07/16/21 21:41> VTE Device Contraindication: N/A - Device Ordered <RONNI Conley - Last Filed: 07/16/21 21:41> VTE Drug Contraindication: N/A - Med Ordered <RONNI Conley - Last Filed: 07/16/21 21:41>
[2021-07-16] MEDS: fentaNYL citrate/NS 1,000 MCG/100 ML PLAST..BAG 20 MCG IVCONT ×4 (04:36→19:08)
[2021-07-16] MEDS: propofoL 1,000 MG/100 ML VIAL 23.13 MG IVCONT ×5 (04:36→21:04)
[2021-07-16] MEDS: Albuterol Sulfate (0.083%) 2.5 MG/3 ML VIAL.NEB 10 MG INHALE (04:43)
[2021-07-16 05:27] LABS: Venous Blood Gas Refer to POC result
[2021-07-16] MEDS: 0.9 % Sodium Chloride 1,000 ML 999 ML IVCONT ×2 (05:35→06:01)
[2021-07-16 05:45] LABS: Reflex Lactate? Lactic Acid Added
[2021-07-16] MEDS: methylPREDNISolone Sod Succ 125 MG/2 ML VIAL IVPUSH ×3 (05:57→17:42)
[2021-07-16] MEDS: Heparin Sodium,Porcine 5,000 UNIT/ML VIAL 5000 UNIT SUBCUT ×2 (05:57→17:42)
[2021-07-16 06:40] LABS: ~Lactic Acid-LAB USE ONLY 7.3 mmol/L (0.5-2.0)
[2021-07-16] MEDS: Midazolam HCl/PF 2 MG/2 ML VIAL 3 MG IVPUSH ×2 (07:31→15:00)
[2021-07-16] MEDS: Albuterol/Iprat 2.5/0.5MG 3 ML AMPUL.NEB INHALE ×3 (07:50→18:11)
[2021-07-16] MEDS: Chlorhexidine Gluc Oral Rinse 15 ML MOUTHWASH BUCCAL (08:22)
[2021-07-16 08:24] LABS: Reflex Lactate? 2 Y
[2021-07-16] MEDS: Phenylephrine HCL 20 MG in 0.9 % Sodium Chloride 250 ML 30.62 MG IVCONT ×2 (08:29→20:57)
[2021-07-16 08:51] LABS: Basophils Percent Auto 0.1 % (0-2); Hematocrit 39.8 % (42.0-52.0); Hemoglobin 13.6 g/dl (14.0-18.0); Imm Gran Abs Auto 0.22 X10*3/uL (0.00-0.03); Imm Gran Pct Auto 1.2 % (0.0-0.4); Lymphocytes Absolute Auto 0.7 X10*3/uL (1.2-4.9); Lymphocytes Percent Auto 3.8 % (20-40); MANUAL DIFF FLAG SCAN; Mean Corpuscular HGB Conc 34.2 g/dl (31.0-36.0); Mean Corpuscular Hemoglobin 28.6 pg (27.0-33.0); Mean Corpuscular Volume 83.8 fL (80.0-98.0); Mean Platelet Volume 8.7 fL (9.4-12.4); Monocytes Absolute Auto 0.4 X10*3/uL (0.1-1.2); Monocytes Percent Auto 2.4 % (2-11); Neutrophils Absolute Auto 16.8 x10*3/uL (2.0-8.3); Neutrophils Percent Auto 92.5 % (45-73); Platelet Count 218 X10*3/uL (160-400); Red Blood Count 4.75 X10*6/uL (4.60-5.80); Red Cell Distribution Width 14.4 % (11.0-16.0); SCAN SMEAR FLAG 1; White Blood Count 18.1 X10*3/uL (4.8-10.8)
--- NOTE | 2021-07-16 08:55 | PM.CCPN ---
Subjective Subjective Date of Service: 07/16/21 Interval History: 30-year-old with severe reactive airway disease presented with status asthmaticus and respiratory arrest requiring brief CPR without evidence of trauma and no pneumothorax no evidence of infiltrate by chest CT scan as well but did have a temperature spike and was cultured and empirically started on Unasyn Remains on propofol and fentanyl requiring p.r.n. doses of Versed and high-dose steroids with improving tidal volumes now in the mid 300s so there is evidence of diminished air trapping no evidence of continued flow at the end of expiration patient does awaken and there some initial indicators of cognitive function currently requiring small dose of pressors for to maintain a mean arterial pressure greater than 60-65 Critical Care Time (minutes): 45 Physical Exam Vital Signs: Vital Signs: Last Vital Signs Temp 99.7 F 07/16/21 08:00 Pulse 117 H 07/16/21 08:00 Resp 22 H 07/16/21 08:00 BP 92/37 L 07/16/21 08:00 Pulse Ox 95 07/16/21 08:00 BMI result Body Mass Index 26.4 Does awaken with early evidence of cognitive function Diminished bilateral breath sounds but no accessory muscle or diaphragmatic effort Bedside echo shows normal LV and RV function Abdomen is soft nontender no organomegaly good bowel sounds Warm and well perfused with no acrocyanosis Objective Data Labs CBC & Chem 7: 07/16/21 03:20 07/16/21 03:20 Labs: Laboratory Results - last 24 hr 07/15/21 07/15/21 07/15/21 17:11 17:26 17:26 WBC 16.2 H RBC 5.63 Hgb 16.0 Hct 49.8 MCV 88.5 MCH 28.4 MCHC 32.1 RDW 14.3 Plt Count 259 MPV 9.3 L Immature Gran % (Auto) 1.4 H Neut % (Auto) 54.9 Lymph % (Auto) 32.8 [place] % (Auto) 6.5 Eos % (Auto) 3.8 Baso % (Auto) 0.6 Lymph # (Auto) 5.3 H [place] # (Auto) 1.1 Eos # (Auto) 0.6 H Baso # (Auto) 0.1 Abs Immat Gran (auto) 0.22 H Absolute Neuts (auto) 8.9 H Absolute Nucleated RBC 0.000 Nucleated RBC % (auto) 0.0 Smear Tech's Comments VERIFIED O2 Saturation ABG pH at Pt Temp ABG pH (Temp Correct) ABG pCO2 at Pt Temp ABG pCO2 (Temp Corrct ABG pO2 at Pt Temp ABG pO2 (Temp Correct ABG HCO3 ABG Base Excess (Actual) VBG pH VBG pCO2 VBG pO2 VBG HCO3 VBG O2 Saturation VBG Base Excess Sodium 142 Potassium 5.4 H D Chloride 105 Carbon Dioxide 16 L Anion Gap 26 H BUN 11 Creatinine 1.31 Estim Creat Clear Calc 83.9 Estimated GFR > 60 POC Glucose 117 H Random Glucose 94 Lactic Acid Lactic Acid F/U @ 2Hr Calcium 9.3 Magnesium 2.5 Total Bilirubin 0.5 AST 114 H ALT 183 H Alkaline Phosphatase 94 Troponin I High Sens Total Protein 8.0 Albumin 4.3 Urine Color Urine Appearance Urine pH Ur Specific [place] Urine Protein Urine Glucose (UA) Urine Ketones Urine Blood Urine Nitrite Ur Leukocyte Esterase Urine RBC Urine WBC Ur Squamous Epith Cells Urine Bacteria Salicylates < 5.0 L Urine Opiates Screen Urine Fentanyl Screen Acetaminophen < 1 Ur Barbiturates Screen Ur Phencyclidine Scrn Ur Amphetamines Screen U Benzodiazepines Scrn Urine Cocaine Screen U Marijuana (THC) Screen Ethyl Alcohol COVID-19 (ESTER) COVID-19 Clin Com 07/15/21 07/15/21 07/15/21 17:26 17:26 17:50 WBC RBC Hgb Hct MCV MCH MCHC RDW Plt Count MPV Immature Gran % (Auto) Neut % (Auto) Lymph % (Auto) [place] % (Auto) Eos % (Auto) Baso % (Auto) Lymph # (Auto) [place] # (Auto) Eos # (Auto) Baso # (Auto) Abs Immat Gran (auto) Absolute Neuts (auto) Absolute Nucleated RBC Nucleated RBC % (auto) Smear Tech's Comments O2 Saturation ABG pH at Pt Temp ABG pH (Temp Correct) ABG pCO2 at Pt Temp ABG pCO2 (Temp Corrct ABG pO2 at Pt Temp ABG pO2 (Temp Correct ABG HCO3 ABG Base Excess (Actual) VBG pH VBG pCO2 VBG pO2 VBG HCO3 VBG O2 Saturation VBG Base Excess Sodium Potassium Chloride Carbon Dioxide Anion Gap BUN Creatinine Estim Creat Clear Calc Estimated GFR POC Glucose Random Glucose Lactic Acid Lactic Acid F/U @ 2Hr Calcium Magnesium Total Bilirubin AST ALT Alkaline Phosphatase Troponin I High Sens 26.2 Total Protein Albumin Urine Color Urine Appearance Urine pH Ur Specific [place] Urine Protein Urine Glucose (UA) Urine Ketones Urine Blood Urine Nitrite Ur Leukocyte Esterase Urine RBC Urine WBC Ur Squamous Epith Cells Urine Bacteria Salicylates Urine Opiates Screen Urine Fentanyl Screen Acetaminophen Ur Barbiturates Screen Ur Phencyclidine Scrn Ur Amphetamines Screen U Benzodiazepines Scrn Urine Cocaine Screen U Marijuana (THC) Screen Ethyl Alcohol < 10 COVID-19 (ESTER) Negative COVID-19 Clin Com See Note 07/15/21 07/15/21 07/15/21 17:50 17:50 21:00 WBC RBC Hgb Hct MCV MCH MCHC RDW Plt Count MPV Immature Gran % (Auto) Neut % (Auto) Lymph % (Auto) [place] % (Auto) Eos % (Auto) Baso % (Auto) Lymph # (Auto) [place] # (Auto) Eos # (Auto) Baso # (Auto) Abs Immat Gran (auto) Absolute Neuts (auto) Absolute Nucleated RBC Nucleated RBC % (auto) Smear Tech's Comments O2 Saturation 97.0 ABG pH at Pt Temp 7.28 L ABG pH (Temp Correct) 7.29 L ABG pCO2 at Pt Temp 46 H ABG pCO2 (Temp Corrct 45 ABG pO2 at Pt Temp 103 ABG pO2 (Temp Correct 100 ABG HCO3 22 ABG Base Excess (Actual) -4.5 VBG pH VBG pCO2 VBG pO2 VBG HCO3 VBG O2 Saturation VBG Base Excess Sodium Potassium Chloride Carbon Dioxide Anion Gap BUN Creatinine Estim Creat Clear Calc Estimated GFR POC Glucose Random Glucose Lactic Acid Lactic Acid F/U @ 2Hr Calcium Magnesium Total Bilirubin AST ALT Alkaline Phosphatase Troponin I High Sens Total Protein Albumin Urine Color STRAW Urine Appearance HAZY Urine pH 6.0 Ur Specific [place] 1.020 Urine Protein 2+ H Urine Glucose (UA) 250 H Urine Ketones NEG Urine Blood 3+ H Urine Nitrite NEG Ur Leukocyte Esterase NEG Urine RBC 50-75 H Urine WBC 0 Ur Squamous Epith Cells NONE Urine Bacteria 1+ Salicylates Urine Opiates Screen Not Detected Urine Fentanyl Screen Not Detected Acetaminophen Ur Barbiturates Screen Not Detected Ur Phencyclidine Scrn Not Detected Ur Amphetamines Screen Not Detected U Benzodiazepines Scrn Not Detected Urine Cocaine Screen Not Detected U Marijuana (THC) Screen POSITIVE H Ethyl Alcohol COVID-19 (ESTER) COVID-19 Clin Com 07/15/21 07/16/21 07/16/21 21:21 03:20 03:20 WBC 19.7 H RBC 5.72 Hgb 16.2 Hct 48.0 MCV 83.9 MCH 28.3 MCHC 33.8 RDW 14.2 Plt Count 278 MPV 8.7 L Immature Gran % (Auto) 1.5 H Neut % (Auto) 92.7 H Lymph % (Auto) 3.3 L [place] % (Auto) 2.4 Eos % (Auto) 0.0 Baso % (Auto) 0.1 Lymph # (Auto) 0.6 L [place] # (Auto) 0.5 Eos # (Auto) 0.0 Baso # (Auto) 0.0 Abs Immat Gran (auto) 0.30 H Absolute Neuts (auto) 18.3 H Absolute Nucleated RBC 0.000 Nucleated RBC % (auto) 0.0 Smear Tech's Comments VERIFIED O2 Saturation ABG pH at Pt Temp ABG pH (Temp Correct) ABG pCO2 at Pt Temp ABG pCO2 (Temp Corrct ABG pO2 at Pt Temp ABG pO2 (Temp Correct ABG HCO3 ABG Base Excess (Actual) VBG pH VBG pCO2 VBG pO2 VBG HCO3 VBG O2 Saturation VBG Base Excess Sodium 141 138 Potassium 4.0 D 6.1 H* D Chloride 105 105 Carbon Dioxide 22 19 L Anion Gap 18 20 BUN 12 18 H Creatinine 1.32 1.52 H Estim Creat Clear Calc 83.3 72.3 Estimated GFR > 60 55 POC Glucose Random Glucose 148 H D 131 H Lactic Acid Lactic Acid F/U @ 2Hr Calcium 8.7 D 9.4 D Magnesium Total Bilirubin 0.6 AST 138 H ALT 260 H Alkaline Phosphatase 84 Troponin I High Sens Total Protein 7.6 Albumin 4.3 Urine Color Urine Appearance Urine pH Ur Specific [place] Urine Protein Urine Glucose (UA) Urine Ketones Urine Blood Urine Nitrite Ur Leukocyte Esterase Urine RBC Urine WBC Ur Squamous Epith Cells Urine Bacteria Salicylates Urine Opiates Screen Urine Fentanyl Screen Acetaminophen Ur Barbiturates Screen Ur Phencyclidine Scrn Ur Amphetamines Screen U Benzodiazepines Scrn Urine Cocaine Screen U Marijuana (THC) Screen Ethyl Alcohol COVID-19 (ESTER) COVID-19 Clin Com 07/16/21 07/16/21 07/16/21 03:20 03:20 06:19 WBC RBC Hgb Hct MCV MCH MCHC RDW Plt Count MPV Immature Gran % (Auto) Neut % (Auto) Lymph % (Auto) [place] % (Auto) Eos % (Auto) Baso % (Auto) Lymph # (Auto) [place] # (Auto) Eos # (Auto) Baso # (Auto) Abs Immat Gran (auto) Absolute Neuts (auto) Absolute Nucleated RBC Nucleated RBC % (auto) Smear Tech's Comments O2 Saturation ABG pH at Pt Temp ABG pH (Temp Correct) ABG pCO2 at Pt Temp ABG pCO2 (Temp Corrct ABG pO2 at Pt Temp ABG pO2 (Temp Correct ABG HCO3 ABG Base Excess (Actual) VBG pH 7.25 L VBG pCO2 52 VBG pO2 68 VBG HCO3 23 VBG O2 Saturation 89.0 VBG Base Excess -4.6 Sodium Potassium Chloride Carbon Dioxide Anion Gap BUN Creatinine Estim Creat Clear Calc Estimated GFR POC Glucose Random Glucose Lactic Acid 5.1 H* Lactic Acid F/U @ 2Hr 7.3 H* Calcium Magnesium Total Bilirubin AST ALT Alkaline Phosphatase Troponin I High Sens Total Protein Albumin Urine Color Urine Appearance Urine pH Ur Specific [place] Urine Protein Urine Glucose (UA) Urine Ketones Urine Blood Urine Nitrite Ur Leukocyte Esterase Urine RBC Urine WBC Ur Squamous Epith Cells Urine Bacteria Salicylates Urine Opiates Screen Urine Fentanyl Screen Acetaminophen Ur Barbiturates Screen Ur Phencyclidine Scrn Ur Amphetamines Screen U Benzodiazepines Scrn Urine Cocaine Screen U Marijuana (THC) Screen Ethyl Alcohol COVID-19 (ESTER) COVID-19 Clin Com Progress Note: A&P Assessment and plan (1) Paroxysmal atrial fibrillation: Status: Acute (2) Severe persistent reactive airway disease with acute exacerbation: Status: Acute (3) Status asthmaticus, intrinsic: Status: Acute (4) Cardiac arrest: Status: Acute (5) Acute respiratory failure: Status: Acute (6) Asthma attack: Status: Acute Assessment and Plan: Plan is to continue same support and when pulmonary consult comes on the December 06 initiate an anti leuko tree in treatment and then probably introduce an inhaled steroid which I will discuss today with respiratory therapy Quality Stroke Does the patient have a stroke diagnosis?: No VTE Prior VTE?: No VTE Risk Level:: Medical - moderate - high VTE Device Contraindication: N/A - Device Ordered VTE Drug Contraindication: N/A - Med Ordered
[2021-07-16 09:05] LABS: Blood Urea Nitrogen 19 mg/dL (9-16); Carbon Dioxide 15 mmol/L (22-29); Chloride 110 mmol/L (96-108); Creatinine Clr Calc Pharmacy 73.3; Estimated Glomerular Filt Rate 56; Glucose Fasting 165 mg/dL (60-99); Sodium 139 mmol/L (135-145)
[2021-07-16 09:13] LABS: Anion Gap 21 (12-20); Calcium 8.4 mg/dL (8.4-10.2); Potassium 4.8 mmol/L (3.3-5.1)
[2021-07-16 09:31] LABS: VBG Base Excess -8.7 mmol/L; VBG HCO3 14 mmol/L (22-26); VBG pCO2 25 mmHg; VBG pH 7.36 (7.32-7.43); VBG pO2 173 mmHg
[2021-07-16 09:33] LABS: Venous Blood Gas Refer to POC result
[2021-07-16 10:11] LABS: ~Lactic Acid-LAB USE ONLY 8.7 mmol/L (0.5-2.0)
[2021-07-16] MEDS: 0.9 % Sodium Chloride 1,000 ML 80 ML IVCONT (11:15)
[2021-07-16] MEDS: Phenylephrine HCL 20 MG in 0.9 % Sodium Chloride 250 ML 61.24 MG IVCONT (13:07)
[2021-07-16] MEDS: 0.9 % Sodium Chloride Flush 3 ML SYRINGE IVFLUSH ×2 (14:59→22:53)
--- NOTE | 2021-07-16 18:05 | PC.NURSE ---
Tmax 99.9, vss, started on phenylephrine per emar. pt awakens to voice, oriented to situation and place. pt drifts back off to sleep. occasionally asynchronous with vent, ivp versed given per EMAR.
--- NOTE | 2021-07-16 18:10 | PC.NURSE ---
tmax 99.9, vss, started on phenylephrine for low map per EMAR. pt awakens to voices, oriented to place and situation several times throughout shift. pt occasioanlly asynchronous with vent, given ivp versed per emar. U/o WNL, repo q2hr, mouth care given. Arden waltre updated bedside.
[2021-07-17] VITALS (23 sets, daily range): BP systolic 110–156; BP diastolic 55–91; PULSE 45–140; RESP 11–91; TEMP 34.4–38.2; O2SAT 90–98; BMI 27.1
[2021-07-17] MEDS: Albuterol/Iprat 2.5/0.5MG 3 ML AMPUL.NEB INHALE ×5 (00:17→20:36)
[2021-07-17] MEDS: 0.9 % Sodium Chloride 1,000 ML 100 ML IVCONT (00:30)
[2021-07-17] MEDS: methylPREDNISolone Sod Succ 125 MG/2 ML VIAL IVPUSH ×2 (00:32→06:12)
[2021-07-17] MEDS: fentaNYL citrate/NS 1,000 MCG/100 ML PLAST..BAG 10 MCG IVCONT (00:59)
[2021-07-17] MEDS: propofoL 1,000 MG/100 ML VIAL 18.51 MG IVCONT ×2 (01:47→04:37)
[2021-07-17] MEDS: Phenylephrine HCL 20 MG in 0.9 % Sodium Chloride 250 ML 30.62 MG IVCONT (03:12)
[2021-07-17] MEDS: Ampicillin Sodium/Sulbactam Na 3 GM in 0.9 % Sodium Chloride 100 ML IV ×3 (03:14→21:36)
[2021-07-17 05:43] LABS: VBG Base Excess -0.8 mmol/L; VBG HCO3 21 mmol/L (22-26); VBG pCO2 27 mmHg; VBG pH 7.49 (7.32-7.43); VBG pO2 122 mmHg
[2021-07-17] MEDS: Heparin Sodium,Porcine 5,000 UNIT/ML VIAL 5000 UNIT SUBCUT ×2 (06:14→17:33)
[2021-07-17 06:20] LABS: MANUAL DIFF FLAG NO
[2021-07-17 06:33] LABS: Basophils Percent Auto 0.1 % (0-2); Hematocrit 39.7 % (42.0-52.0); Hemoglobin 13.7 g/dl (14.0-18.0); Imm Gran Abs Auto 0.27 X10*3/uL (0.00-0.03); Imm Gran Pct Auto 1.3 % (0.0-0.4); Lymphocytes Absolute Auto 1.5 X10*3/uL (1.2-4.9); Lymphocytes Percent Auto 7.3 % (20-40); Mean Corpuscular HGB Conc 34.5 g/dl (31.0-36.0); Mean Corpuscular Hemoglobin 28.2 pg (27.0-33.0); Mean Corpuscular Volume 81.7 fL (80.0-98.0); Mean Platelet Volume 9.2 fL (9.4-12.4); Neutrophils Absolute Auto 17.5 x10*3/uL (2.0-8.3); Neutrophils Percent Auto 86.3 % (45-73); Platelet Count 255 X10*3/uL (160-400); Red Blood Count 4.86 X10*6/uL (4.60-5.80); Red Cell Distribution Width 14.6 % (11.0-16.0); White Blood Count 20.2 X10*3/uL (4.8-10.8)
--- NOTE | 2021-07-17 06:34 | PC.NURSE ---
Pt maintained on Pressure control vent settings overnight. Propofol and Fentanyl for sedation. Rates had to be adjusted due to bradycardia down to 40's. Currently SB, rate 52. Pt was biting on ETT at one point and bite block had to be adjusted. Bp stable on phenylephrine. Urine output started off 30-60 ml/hr. Iv of NS was increased to 100 ml/hr. U/O picked up after that. Pt afebrile.
[2021-07-17 06:42] LABS: Venous Blood Gas Refer to POC result
[2021-07-17 07:05] LABS: Alanine Aminotransferase 138 U/L (0-40); Albumin Level 3.4 g/dL (3.5-5.0); Alkaline Phosphatase 61 U/L (39-117); Anion Gap 13 (12-20); Aspartate Amino Transferase 46 U/L (5-37); Bilirubin Total 0.5 mg/dL (0.0-1.0); Blood Urea Nitrogen 11 mg/dL (9-16); Calcium 8.7 mg/dL (8.4-10.2); Carbon Dioxide 19 mmol/L (22-29); Chloride 112 mmol/L (96-108); Creatinine Clr Calc Pharmacy 140.9; Estimated Glomerular Filt Rate > 60; Glucose Random 116 mg/dL (60-115); Sodium 140 mmol/L (135-145); Total Protein 5.8 g/dL (6.5-8.0)
--- NOTE | 2021-07-17 09:21 | P.PNCC_ITS ---
Subjective Subjective Date of Service: 07/17/21 Interval History: 30-year-old who presented with status asthmaticus and actually had respiratory arrest coming in the door the emergency room requiring a brief CPR including chest compressions without evidence of for physical trauma and initially had such extensive bronchospasm with with air trapping he had no chest movement at all return volumes were below 100 cc on the ventilator and had to be switched to a pressure control mode and given an aggressive 10 mg short- acting bronchodilator therapy high-dose IV steroid and then little by little started to open up with the improving expiratory volume improving chest excursion and we continued his aggressive bronchodilator therapy and the ventilator in the in the pressure rather than volume mode so as to eliminate all evidence of air trapping and blood pressure improved of course heart rate diminished and he initially did start in a rapid atrial fibrillation which spontaneously converted to sinus rhythm at a rate of 145 and then slowly that rate dissipated as the degree of air trapping and its probable contribution to reduced stroke volume behavior was just like as severe reactive airway disease and he will probably need an anti leukotriene medication as well as a an L steroid and potentially on very very slow weaning of a of an oral steroid today is return volumes were in the 550 cc range with low minutes ventilatory requirement and FiO2 was weaned down to 30% with excellent saturation and end- tidal CO2 so he lifted sedation and with appropriate cognitive function we did a very brief pressure support trial and he had superb tidal volumes and vital capacity and with that he was extubated without consequence certainly no witnessed aspiration Critical Care Time (minutes): 45 Physical Exam Vital Signs: Vital Signs: Last Vital Signs Temp 97.7 F 07/17/21 08:00 Pulse 136 H 07/17/21 08:00 Resp 13 07/17/21 08:00 BP 156/65 H 07/17/21 08:00 Pulse Ox 93 07/17/21 08:00 BMI result Body Mass Index 27.1 nonfocal neurologically and cognitive function slowly returning of f sedation chest still with diminished breath sounds bilaterally but no adventitious sounds no prolonged expiratory fritz e cardiac exam with normal S1 normal S2 no gallops no neck vein distension and good bilateral carotid upstrokes abdomen is soft no organomegaly Objective Data Labs CBC & Chem 7: 07/17/21 05:22 07/17/21 05:22 Labs: Laboratory Results - last 24 hr 07/16/21 07/16/21 07/16/21 08:25 09:13 09:26 WBC 18.1 H RBC 4.75 Hgb 13.6 L Hct 39.8 L MCV 83.8 MCH 28.6 MCHC 34.2 RDW 14.4 Plt Count 218 MPV 8.7 L Immature Gran % (Auto) 1.2 H Neut % (Auto) 92.5 H Lymph % (Auto) 3.8 L [place] % (Auto) 2.4 Eos % (Auto) 0.0 Baso % (Auto) 0.1 Lymph # (Auto) 0.7 L [place] # (Auto) 0.4 Eos # (Auto) 0.0 Baso # (Auto) 0.0 Abs Immat Gran (auto) 0.22 H Absolute Neuts (auto) 16.8 H Absolute Nucleated RBC 0.000 Nucleated RBC % (auto) 0.0 VBG pH 7.36 VBG pCO2 25 VBG pO2 173 VBG HCO3 14 L VBG O2 Saturation 99.0 VBG Base Excess -8.7 Sodium Potassium Chloride Carbon Dioxide Anion Gap BUN Creatinine Estim Creat Clear Calc Estimated GFR Random Glucose Lactic Acid F/U @ 4Hr 8.7 H* Calcium Total Bilirubin AST ALT Alkaline Phosphatase Total Protein Albumin 07/17/21 07/17/21 07/17/21 05:22 05:22 05:36 WBC 20.2 H RBC 4.86 Hgb 13.7 L Hct 39.7 L MCV 81.7 MCH 28.2 MCHC 34.5 RDW 14.6 Plt Count 255 MPV 9.2 L Immature Gran % (Auto) 1.3 H Neut % (Auto) 86.3 H Lymph % (Auto) 7.3 L [place] % (Auto) 5.0 Eos % (Auto) 0.0 Baso % (Auto) 0.1 Lymph # (Auto) 1.5 [place] # (Auto) 1.0 Eos # (Auto) 0.0 Baso # (Auto) 0.0 Abs Immat Gran (auto) 0.27 H Absolute Neuts (auto) 17.5 H Absolute Nucleated RBC 0.000 Nucleated RBC % (auto) 0.0 VBG pH 7.49 H VBG pCO2 27 VBG pO2 122 VBG HCO3 21 L VBG O2 Saturation 98.0 VBG Base Excess -0.8 Sodium 140 Potassium 4.0 Chloride 112 H Carbon Dioxide 19 L Anion Gap 13 BUN 11 Creatinine 0.78 Estim Creat Clear Calc 140.9 Estimated GFR > 60 Random Glucose 116 H Lactic Acid F/U @ 4Hr Calcium 8.7 Total Bilirubin 0.5 AST 46 H D ALT 138 H Alkaline Phosphatase 61 D Total Protein 5.8 L D Albumin 3.4 L D Microbiology Microbiology Results: Microbiology 07/16/21 03:50 Sputum - Suctioned Gram Stain - Preliminary 07/16/21 03:50 Sputum - Suctioned Sputum Culture - Preliminary Culture in progress. 07/15/21 19:26 Blood - Venous Blood Culture - Preliminary No growth after 24 hours. 07/15/21 19:26 Blood - Venous Blood Culture - Preliminary No growth after 24 hours. Progress Note: A&P Assessment and plan (1) Paroxysmal atrial fibrillation: Status: Acute (2) Severe persistent reactive airway disease with acute exacerbation: Status: Acute (3) Status asthmaticus, intrinsic: Status: Acute (4) Cardiac arrest: Status: Acute (5) Acute respiratory failure: Status: Acute (6) Asthma attack: Status: Acute Assessment and Plan: so he was weaned from the ventilator extubated and converted to nasal cannula with comfortable respiratory rate and oxygen saturation and will monitor him on his 1st clear liquid intake and about an hour to an hour and a half and also a blood gas at the same time and if all is stable he can transfer to the floor and I am going to introduce an oral anti leukotriene and I am going to introduce a inhaled steroid Quality Stroke Does the patient have a stroke diagnosis?: No VTE Prior VTE?: No VTE Risk Level:: Medical - moderate - high VTE Device Contraindication: N/A - Device Ordered VTE Drug Contraindication: N/A - Med Ordered
[2021-07-17 10:16] LABS: Venous Blood Gas Refer to POC result
[2021-07-17 10:17] LABS: VBG Base Excess -1.1 mmol/L; VBG HCO3 20 mmol/L (22-26); VBG pCO2 26 mmHg; VBG pH 7.49 (7.32-7.43); VBG pO2 210 mmHg
[2021-07-17] MEDS: methylPREDNISolone Sod Succ 125 MG/2 ML VIAL 60 MG IVPUSH ×2 (11:50→17:33)
[2021-07-17] MEDS: 0.9 % Sodium Chloride Flush 3 ML SYRINGE IVFLUSH ×2 (17:33→21:38)
--- NOTE | 2021-07-17 18:47 | PC.NURSE ---
pt extuabted arounbd 0845 onto 2L NC. pt oriented to date, palce and situation. Pt tolerating 2L NC well, titrated to RA. Shortly after extubation, ana and pt began to argue. This RN went into room and asked for them to be quieter due to entire unit hearing arguing and pt's HR increasing. Shortly after pt and fiance began arguing again, so room door was shut. Pt and fiance calmed down and were talk then began fighting again, HR into 140s, o2 sat to 88-89%, another RN went into room and told fiance and pt that if they were going to continue to argue that she would be asked to leave due to pt's vitals. Pt and fiance calmed down, this RN reiterated what other RN stated and pt and fiance stated they understood. Pt to be transferred to [facility], relayed info to fiance and pt. Also reiterated visitor policy re: visiting hours and strict no overnight guests. Pt toelrating clear liuid diet well, only c/o weakness and sore throat, reassured pt this is normal for after extuabation. also educated pt and fiance on safety and not getting pt up out of bed without staff members.
[2021-07-17] MEDS: Montelukast Sodium 10 MG TABLET PO (21:35)
[2021-07-18] VITALS (9 sets, daily range): BP systolic 133–155; BP diastolic 65–74; PULSE 96–110; RESP 15–20; TEMP 36.8–37.6; O2SAT 94–98
[2021-07-18] MEDS: methylPREDNISolone Sod Succ 125 MG/2 ML VIAL 60 MG IVPUSH ×2 (00:20→04:34)
[2021-07-18] MEDS: Albuterol/Iprat 2.5/0.5MG 3 ML AMPUL.NEB INHALE ×4 (01:22→19:43)
[2021-07-18] MEDS: Heparin Sodium,Porcine 5,000 UNIT/ML VIAL 5000 UNIT SUBCUT ×2 (04:37→18:05)
[2021-07-18] MEDS: Ampicillin Sodium/Sulbactam Na 3 GM in 0.9 % Sodium Chloride 100 ML IV ×3 (04:38→19:55)
[2021-07-18 06:05] LABS: Hematocrit 39.5 % (42.0-52.0); Hemoglobin 13.6 g/dl (14.0-18.0); Mean Corpuscular HGB Conc 34.4 g/dl (31.0-36.0); Mean Corpuscular Hemoglobin 28.1 pg (27.0-33.0); Mean Corpuscular Volume 81.6 fL (80.0-98.0); Mean Platelet Volume 8.9 fL (9.4-12.4); Platelet Count 208 X10*3/uL (160-400); Red Blood Count 4.84 X10*6/uL (4.60-5.80); Red Cell Distribution Width 14.6 % (11.0-16.0); White Blood Count 16.1 X10*3/uL (4.8-10.8)
[2021-07-18 06:17] LABS: Anion Gap 15 (12-20); Blood Urea Nitrogen 16 mg/dL (9-16); Calcium 9.2 mg/dL (8.4-10.2); Carbon Dioxide 23 mmol/L (22-29); Chloride 110 mmol/L (96-108); Creatinine Clr Calc Pharmacy 123.5; Estimated Glomerular Filt Rate > 60; Glucose Random 111 mg/dL (60-115); Potassium 3.6 mmol/L (3.3-5.1); Sodium 144 mmol/L (135-145)
[2021-07-18] MEDS: 0.9 % Sodium Chloride Flush 3 ML SYRINGE IVFLUSH ×3 (08:06→23:58)
--- NOTE | 2021-07-18 09:41 | PM.CNPUL ---
History of Present Illness History of Present Illness Consult date: 07/18/21 Reason for consult: asthma Chief complaint: Resp Arrest Narrative: This is a pulmonary in patient consultation. The patient is a 30-year-old male with frequent presentations of hypoxic respiratory failure/status asthmaticus and more of the same today but actually had respiratory arrest at the door requiring brief resuscitation he was initially in rapid atrial fibrillation with heart rates as high as 180 converted spontaneously to sinus tachycardia rate 145 post intubation and initially there was no evidence of of chest movement clearly was severely air trapping with severe did diffuse small airway bronchospasm none and the he was started on a a paralytic agent and we had to switch from volume control to pressure control. Both chest x-ray and chest CT scan showed no evidence of infiltrate occluded there was no aspiration and there was definitely no evidence of a even an occult pneumothorax or pneumomediastinum. The patient was treated for the status asthmaticus but made a dramatic recovery and was able to be liberated from the ventilator. The patient now is on the floor recovering. He still on 1 L NC, but h shouldbe able to wean off. Review of Systems Constitutional: Constitutional: Denies night sweats ENT: Denies change in voice, Denies lip swelling, Denies mouth pain, Reports nasal congestion, Reports nasal discharge and Denies tongue swelling Cardiovascular: Cardiovascular: Reports chest pain Respiratory: Respiratory: Reports cough, Reports stridor and Reports wheezing Gastrointestinal: Gastrointestinal: Denies abdominal pain Musculoskeletal: Musculoskeletal: Denies no additional musculoskeletal complaints Neurologic: Denies Neuro-related abnormal movements Psychiatric: Psychiatric: Denies no additional psychiatric complaints Hematologic/Lymphatic: Hematologic/Lymphatic: Denies easy bleeding and Denies lymphadenopathy Allergic/Immunologic: Allergic/Immunologic: Denies lip swelling, Denies tongue swelling and Reports wheezing [facility] Past Medical History Medical History (Updated 07/16/21 @ 08:53 by Wanda Barry MD) Asthma Heart attack Status asthmaticus, intrinsic Social History Social History Household Members: Significant Other Housing: House Do you presently have visiting nurse or other home services: No Unable to assess alcohol history related to: Unable to respond Alcohol intake: current Patient Tobacco Use Status: Current someday Tobacco user Use of substances other than those prescribed or required for medical reasons: Unable to respond Currently Displaying Signs/Symptoms of Drug Intoxication Withdrawal: No Advance Directives: No Advance Directives Information Provided: Yes Do you have thoughts of harming others: None Do you have a plan to hurt others: No Plan Recently lost weight without trying: Unsure Poor oral hygiene: No service: No Current occupational status: employed Meds Allergies Allergy/AdvReac Type Severity Reaction Status Date / Time unknown antibiotic Allergy Itching Uncoded 03/03/21 11:26 Active Medications: Current Medications Albuterol Sulfate (Albuterol Sulfate (0.083%) 2.5 Mg/3 Ml Vial.Neb) 2.5 mg INHALE RQ4H PRN PRN Reason: Wheezing Last Admin: 07/16/21 03:48 Dose: 2.5 mg Documented by: Albuterol/Ipratropium (Albuterol/Iprat 2.5/0.5mg 3 Ml Ampul.Neb) 3 ml INHALE RQ4H [facility] Last Admin: 07/18/21 07:34 Dose: Not Given Documented by: Budesonide (Budesonide 180 Mcg Aer.Pow.Ba) 1 puff INHALE BID [facility] Last Admin: 07/17/21 21:38 Dose: Not Given Documented by: Heparin Sodium (Porcine) (Heparin Sodium,Porcine 5,000 Unit/Ml Vial) 5,000 unit SUBCUT Q12H [facility] Last Admin: 07/18/21 04:37 Dose: 5,000 unit Documented by: Ampicillin Sodium/Sulbactam (Sodium 3 gm/ Sodium Chloride) 100 mls @ 200 mls/hr IV Q8H [facility] Last Infusion: 07/18/21 05:09 Dose: Infused Documented by: Methylprednisolone Sodium Succinate (Methylprednisolone Sod Succ 125 Mg/2 Ml Vial) 40 mg IVPUSH Q12H [facility] Montelukast Sodium (Montelukast Sodium 10 Mg Tablet) 10 mg PO BEDTIME [facility] Last Admin: 07/17/21 21:35 Dose: 10 mg Documented by: Naloxone HCl (Naloxone Hcl 0.4 Mg/Ml Vial) 0.2 mg IVPUSH Q2M PRN PRN Reason: Excessive sedation or RR < 8 Omeprazole (Omeprazole 20 Mg/10 Ml Susp.Recon) 20 mg PO DAILY@0630 [facility] Last Admin: 07/18/21 04:57 Dose: 20 mg Documented by: Sodium Chloride (0.9 % Sodium Chloride Flush 3 Ml Syringe) 3 ml IVFLUSH QSHIFT [facility] Last Admin: 07/18/21 08:06 Dose: 3 ml Documented by: Physical Exam Vital Signs: Vital Signs: Last Vital Signs Temp 99.2 F 07/18/21 07:38 Pulse 107 H 07/18/21 07:38 Resp 18 07/18/21 07:38 BP 148/74 H 07/18/21 07:38 Pulse Ox 97 07/18/21 07:38 BMI result Body Mass Index 27.1 Const: General: alert Neck: Neck: Yes normal visual inspection, Yes full ROM and Yes no lymphadenopathy Chest: Chest palpation & inspection: normal inspection of the chest Resp: Auscultation: no rales, no rhonchi, no wheezes and diminished lung sounds Cardio: Rate: regular rate Rhythm: regular rhythm Heart sounds: S1 normal heart sound present and S2 normal heart sound present GI: Palpation (GI): Soft to palpation and nontender Auscultation: normal bowel sounds Skin: General skin exam: rashes and/or lesions noted Results Laboratory Findings CBC and BMP: 07/18/21 05:30 07/18/21 05:30 Abnormal lab findings: Abnormal Labs 07/15/21 07/15/21 07/15/21 17:11 17:26 17:26 WBC 16.2 H Hgb Hct MPV 9.3 L Immature Gran % (Auto) 1.4 H Neut % (Auto) Lymph % (Auto) Lymph # (Auto) 5.3 H Eos # (Auto) 0.6 H Abs Immat Gran (auto) 0.22 H Absolute Neuts (auto) 8.9 H ABG pH at Pt Temp ABG pH (Temp Correct) ABG pCO2 at Pt Temp VBG pH VBG HCO3 Potassium 5.4 H D Chloride Carbon Dioxide 16 L Anion Gap 26 H BUN Creatinine POC Glucose 117 H Random Glucose Fasting Glucose Lactic Acid Lactic Acid F/U @ 2Hr Lactic Acid F/U @ 4Hr AST 114 H ALT 183 H Total Protein Albumin Urine Protein Urine Glucose (UA) Urine Blood Urine RBC Salicylates < 5.0 L U Marijuana (THC) Screen 07/15/21 07/15/21 07/15/21 17:50 17:50 21:00 WBC Hgb Hct MPV Immature Gran % (Auto) Neut % (Auto) Lymph % (Auto) Lymph # (Auto) Eos # (Auto) Abs Immat Gran (auto) Absolute Neuts (auto) ABG pH at Pt Temp 7.28 L ABG pH (Temp Correct) 7.29 L ABG pCO2 at Pt Temp 46 H VBG pH VBG HCO3 Potassium Chloride Carbon Dioxide Anion Gap BUN Creatinine POC Glucose Random Glucose Fasting Glucose Lactic Acid Lactic Acid F/U @ 2Hr Lactic Acid F/U @ 4Hr AST ALT Total Protein Albumin Urine Protein 2+ H Urine Glucose (UA) 250 H Urine Blood 3+ H Urine RBC 50-75 H Salicylates U Marijuana (THC) Screen POSITIVE H 07/15/21 07/16/21 07/16/21 21:21 03:20 03:20 WBC 19.7 H Hgb Hct MPV 8.7 L Immature Gran % (Auto) 1.5 H Neut % (Auto) 92.7 H Lymph % (Auto) 3.3 L Lymph # (Auto) 0.6 L Eos # (Auto) Abs Immat Gran (auto) 0.30 H Absolute Neuts (auto) 18.3 H ABG pH at Pt Temp ABG pH (Temp Correct) ABG pCO2 at Pt Temp VBG pH VBG HCO3 Potassium 6.1 H* D Chloride Carbon Dioxide 19 L Anion Gap BUN 18 H Creatinine 1.52 H POC Glucose Random Glucose 148 H D 131 H Fasting Glucose Lactic Acid Lactic Acid F/U @ 2Hr Lactic Acid F/U @ 4Hr AST 138 H ALT 260 H Total Protein Albumin Urine Protein Urine Glucose (UA) Urine Blood Urine RBC Salicylates U Marijuana (THC) Screen 07/16/21 07/16/21 07/16/21 03:20 03:20 06:19 WBC Hgb Hct MPV Immature Gran % (Auto) Neut % (Auto) Lymph % (Auto) Lymph # (Auto) Eos # (Auto) Abs Immat Gran (auto) Absolute Neuts (auto) ABG pH at Pt Temp ABG pH (Temp Correct) ABG pCO2 at Pt Temp VBG pH 7.25 L VBG HCO3 Potassium Chloride Carbon Dioxide Anion Gap BUN Creatinine POC Glucose Random Glucose Fasting Glucose Lactic Acid 5.1 H* Lactic Acid F/U @ 2Hr 7.3 H* Lactic Acid F/U @ 4Hr AST ALT Total Protein Albumin Urine Protein Urine Glucose (UA) Urine Blood Urine RBC Salicylates U Marijuana (THC) Screen 07/16/21 07/16/21 07/16/21 08:25 08:25 09:13 WBC 18.1 H Hgb 13.6 L Hct 39.8 L MPV 8.7 L Immature Gran % (Auto) 1.2 H Neut % (Auto) 92.5 H Lymph % (Auto) 3.8 L Lymph # (Auto) 0.7 L Eos # (Auto) Abs Immat Gran (auto) 0.22 H Absolute Neuts (auto) 16.8 H ABG pH at Pt Temp ABG pH (Temp Correct) ABG pCO2 at Pt Temp VBG pH VBG HCO3 Potassium Chloride 110 H Carbon Dioxide 15 L Anion Gap 21 H BUN 19 H Creatinine 1.50 H POC Glucose Random Glucose Fasting Glucose 165 H Lactic Acid Lactic Acid F/U @ 2Hr Lactic Acid F/U @ 4Hr 8.7 H* AST ALT Total Protein Albumin Urine Protein Urine Glucose (UA) Urine Blood Urine RBC Salicylates U Marijuana (THC) Screen 07/16/21 07/17/21 07/17/21 09:26 05:22 05:22 WBC 20.2 H Hgb 13.7 L Hct 39.7 L MPV 9.2 L Immature Gran % (Auto) 1.3 H Neut % (Auto) 86.3 H Lymph % (Auto) 7.3 L Lymph # (Auto) Eos # (Auto) Abs Immat Gran (auto) 0.27 H Absolute Neuts (auto) 17.5 H ABG pH at Pt Temp ABG pH (Temp Correct) ABG pCO2 at Pt Temp VBG pH VBG HCO3 14 L Potassium Chloride 112 H Carbon Dioxide 19 L Anion Gap BUN Creatinine POC Glucose Random Glucose 116 H Fasting Glucose Lactic Acid Lactic Acid F/U @ 2Hr Lactic Acid F/U @ 4Hr AST 46 H D ALT 138 H Total Protein 5.8 L D Albumin 3.4 L D Urine Protein Urine Glucose (UA) Urine Blood Urine RBC Salicylates U Marijuana (THC) Screen 07/17/21 07/17/21 07/18/21 05:36 10:10 05:30 WBC 16.1 H Hgb 13.6 L Hct 39.5 L MPV 8.9 L Immature Gran % (Auto) Neut % (Auto) Lymph % (Auto) Lymph # (Auto) Eos # (Auto) Abs Immat Gran (auto) Absolute Neuts (auto) ABG pH at Pt Temp ABG pH (Temp Correct) ABG pCO2 at Pt Temp VBG pH 7.49 H 7.49 H VBG HCO3 21 L 20 L Potassium Chloride Carbon Dioxide Anion Gap BUN Creatinine POC Glucose Random Glucose Fasting Glucose Lactic Acid Lactic Acid F/U @ 2Hr Lactic Acid F/U @ 4Hr AST ALT Total Protein Albumin Urine Protein Urine Glucose (UA) Urine Blood Urine RBC Salicylates U Marijuana (THC) Screen 07/18/21 05:30 WBC Hgb Hct MPV Immature Gran % (Auto) Neut % (Auto) Lymph % (Auto) Lymph # (Auto) Eos # (Auto) Abs Immat Gran (auto) Absolute Neuts (auto) ABG pH at Pt Temp ABG pH (Temp Correct) ABG pCO2 at Pt Temp VBG pH VBG HCO3 Potassium Chloride 110 H Carbon Dioxide Anion Gap BUN Creatinine POC Glucose Random Glucose Fasting Glucose Lactic Acid Lactic Acid F/U @ 2Hr Lactic Acid F/U @ 4Hr AST ALT Total Protein Albumin Urine Protein Urine Glucose (UA) Urine Blood Urine RBC Salicylates U Marijuana (THC) Screen Microbiology: Microbiology 07/15/21 19:26 Blood - Venous Blood Culture - Preliminary No growth after 48 hours. 07/15/21 19:26 Blood - Venous Blood Culture - Preliminary No growth after 48 hours. 07/16/21 03:50 Sputum - Suctioned Gram Stain - Preliminary 07/16/21 03:50 Sputum - Suctioned Sputum Culture - Preliminary Culture in progress. Assessment and Plan (1) Severe persistent reactive airway disease with acute exacerbation: Status: Acute (2) Status asthmaticus, intrinsic: Status: Acute (3) Acute respiratory failure: Qualifiers: Respiratory failure complication: unspecified whether with hypoxia or hypercapnia Qualified Code(s): J96.00 - Acute respiratory failure, unspecified whether with hypoxia or hypercapnia Status: Acute The patient may have a component of an allergic reaction which may have caused him to have over airway respiratory inflammatory changes resulting the respiratory failure. The patient needed a very quick recovery usually not typical of status asthmaticus. His eosinophils were elevated suggesting an allergic reaction. Recommendations: -Start Breo 200 -ROSALVA as needed -WIll need a slow prednisone taper, decreasing by 10mg every 3-4 days -Would recommend epipen for him to have available -F/U with outpt pulmonary to perform PFTs/allergy testing/inhaler teaching Procedures Date of Service Date of Service: 07/18/21
[2021-07-18] MEDS: methylPREDNISolone Sod Succ 125 MG/2 ML VIAL 40 MG IVPUSH ×2 (11:32→21:11)
--- NOTE | 2021-07-18 12:27 | P.PNIM_ITS ---
Subjective Subjective Date of Service: 07/18/21 Interval History: the patient was seen and evaluated this morning Laying in bed, feels much better but still tight in his breathing Weaning down the oxygen No reported other overnight events. Systemic review: No fever, chills or weakness No chest pain, palpitation Dyspnea on exertion, coughing No abdominal pain, nausea or vomiting No urinary symptoms No any rash or wounds Physical Exam Vital Signs: Vital Signs: Last Vital Signs Temp 98.9 F 07/18/21 11:33 Pulse 101 H 07/18/21 11:33 Resp 20 07/18/21 11:33 BP 150/71 H 07/18/21 11:33 Pulse Ox 96 07/18/21 11:33 BMI result Body Mass Index 27.1 Const: Other: Constitutional : Alert, oriented, Neck : Normal inspection, Supple Cardiovascular : RRR, S1 S2, no lower extremity edema Respiratory : Decreased bilateral air entry with bilateral expiratory wheezes Gastrointestinal: soft, lax, Normal bowel sounds, Non tender Skin : Warm, Dry Neurological : Alert & oriented x3, No focal deficit Objective Data Active Medications Albuterol Sulfate (Albuterol Sulfate (0.083%) 2.5 Mg/3 Ml Vial.Neb) 2.5 mg INHALE RQ4H PRN PRN Reason: Wheezing Last Admin: 07/16/21 03:48 Dose: 2.5 mg Documented by: DUSTIN Albuterol/Ipratropium (Albuterol/Iprat 2.5/0.5mg 3 Ml Ampul.Neb) 3 ml INHALE RQ4H [facility] Last Admin: 07/18/21 07:34 Dose: Not Given Documented by: LEON Non-Admin Reason: Patient Refused Budesonide (Budesonide 180 Mcg Aer.Pow.Ba) 1 puff INHALE BID [facility] Last Admin: 07/17/21 21:38 Dose: Not Given Documented by: FRANKO Non-Admin Reason: Med Not Available Fluticasone/Vilanterol (Fluticasone/Vilanterol 200/25 Blst.W.Dev) 1 puff INHALE RDAILY [facility] Heparin Sodium (Porcine) (Heparin Sodium,Porcine 5,000 Unit/Ml Vial) 5,000 unit SUBCUT Q12H [facility] Last Admin: 07/18/21 04:37 Dose: 5,000 unit Documented by: FRANKO Ampicillin Sodium/Sulbactam (Sodium 3 gm/ Sodium Chloride) 100 mls @ 200 mls/hr IV Q8H [facility] Last Admin: 07/18/21 12:00 Dose: 200 mls/hr Documented by: ADRIANNE Methylprednisolone Sodium Succinate (Methylprednisolone Sod Succ 125 Mg/2 Ml Vial) 40 mg IVPUSH Q12H [facility] Last Admin: 07/18/21 11:32 Dose: 40 mg Documented by: ADRIANNE Montelukast Sodium (Montelukast Sodium 10 Mg Tablet) 10 mg PO BEDTIME [facility] Last Admin: 07/17/21 21:35 Dose: 10 mg Documented by: FRANKO Naloxone HCl (Naloxone Hcl 0.4 Mg/Ml Vial) 0.2 mg IVPUSH Q2M PRN PRN Reason: Excessive sedation or RR < 8 Omeprazole (Omeprazole 20 Mg/10 Ml Susp.Recon) 20 mg PO DAILY@0630 [facility] Last Admin: 07/18/21 04:57 Dose: 20 mg Documented by: FRANKO Sodium Chloride (0.9 % Sodium Chloride Flush 3 Ml Syringe) 3 ml IVFLUSH QSHIFT [facility] Last Admin: 07/18/21 08:06 Dose: 3 ml Documented by: ADRIANNE Labs CBC & Chem 7: 07/18/21 05:30 07/18/21 05:30 Labs: Laboratory Results - last 24 hr 07/18/21 07/18/21 05:30 05:30 MCV 81.6 MCH 28.1 MCHC 34.4 RDW 14.6 Plt Count 208 MPV 8.9 L Absolute Nucleated RBC 0.000 Nucleated RBC % (auto) 0.0 Anion Gap 15 Estim Creat Clear Calc 123.5 Estimated GFR > 60 Random Glucose 111 Calcium 9.2 Microbiology Microbiology Results: Microbiology 07/16/21 03:50 Gram Stain - Final Sputum - Suctioned Sputum Culture - Preliminary Streptococcus pneumoniae Moraxella catarrhalis 07/15/21 19:26 Blood Culture - Preliminary Blood - Venous No growth after 48 hours. 07/15/21 19:26 Blood Culture - Preliminary Blood - Venous No growth after 48 hours. Assessment and Plan (1) Severe persistent reactive airway disease with acute exacerbation: Status: Acute (2) Asthma attack: Status: Acute (3) Status asthmaticus, intrinsic: Status: Acute Assessment and Plan: A 30 years old male with PMH of asthma presents to the hospital with status asthmaticus requiring ICU admission and intubation post arrest. Hypoxic respiratory failure, resolved Asthma exacerbation Continue duo nebs ATC and p.r.n. Continue Singulair To Maty down slowly at time of discharge, decrease every 3 days To start Breo 200 To give him EpiPen at time of discharge Pulmonology input appreciated, F/U with outpt pulmonary to perform PFTs/allergy testing/inhaler teaching Aspiration pneumonia Cultures are negative Continue with Unasyn DVT PPX Heparin Quality Stroke Does the patient have a stroke diagnosis?: No VTE Prior VTE?: No VTE Risk Level:: Medical - moderate - high VTE Device Contraindication: N/A - Device Ordered VTE Drug Contraindication: N/A - Med Ordered
--- NOTE | 2021-07-18 15:00 | MHC.CM.PN ---
hcp filed and placed on chart
[2021-07-18] MEDS: Benzonatate 100 MG CAPSULE PO ×2 (15:27→21:10)
[2021-07-18] MEDS: Montelukast Sodium 10 MG TABLET PO (21:10)
[2021-07-19 00:32] VITALS: PULSE 78; RESP 18
[2021-07-19] MEDS: Albuterol/Iprat 2.5/0.5MG 3 ML AMPUL.NEB INHALE ×2 (00:32→11:22)
[2021-07-19] MEDS: Ampicillin Sodium/Sulbactam Na 3 GM in 0.9 % Sodium Chloride 100 ML IV (03:47)
[2021-07-19 04:00] VITALS: BP 136/56; PULSE 92; RESP 16; TEMP 36.3; O2SAT 96
[2021-07-19] MEDS: Heparin Sodium,Porcine 5,000 UNIT/ML VIAL 5000 UNIT SUBCUT (05:35)
[2021-07-19 06:55] LABS: Hemoglobin 14.1 g/dl (14.0-18.0); Mean Corpuscular HGB Conc 34.4 g/dl (31.0-36.0); Mean Corpuscular Volume 81.5 fL (80.0-98.0); Platelet Count 211 X10*3/uL (160-400); Red Blood Count 5.03 X10*6/uL (4.60-5.80); Red Cell Distribution Width 14.5 % (11.0-16.0); White Blood Count 13.7 X10*3/uL (4.8-10.8)
[2021-07-19 07:03] LABS: Anion Gap 12 (12-20); Blood Urea Nitrogen 19 mg/dL (9-16); Calcium 9.2 mg/dL (8.4-10.2); Carbon Dioxide 25 mmol/L (22-29); Chloride 109 mmol/L (96-108); Creatinine Clr Calc Pharmacy 122.1; Estimated Glomerular Filt Rate > 60; Glucose Random 119 mg/dL (60-115); Potassium 3.8 mmol/L (3.3-5.1); Sodium 142 mmol/L (135-145)
[2021-07-19 07:42] VITALS: BP 124/64; PULSE 81; RESP 18; TEMP 37.3; O2SAT 95
[2021-07-19] MEDS: methylPREDNISolone Sod Succ 125 MG/2 ML VIAL 40 MG IVPUSH (09:18)
[2021-07-19] MEDS: 0.9 % Sodium Chloride Flush 3 ML SYRINGE IVFLUSH (09:18)
[2021-07-19] MEDS: Benzonatate 100 MG CAPSULE PO (09:19)
--- NOTE | 2021-07-19 09:40 | P.DS_ITS ---
DS: Providers Provider Date of Service: 07/19/21 Date of admission: 07/15/21 18:20 Primary care physician: Unknown Physician Consults: 07/18/21 09:35 Consult to Pulmonology Routine Consulting Provider: Rubio Tuttle Reason for consultation: status asthmaticus post extubation, DS: Diagnosis Discharge Diagnosis (1) Severe persistent reactive airway disease with acute exacerbation: Status: Acute (2) Asthma attack: Status: Acute (3) Status asthmaticus, intrinsic: Status: Acute (4) Cardiac arrest: Status: Acute (5) Acute respiratory failure: Status: Acute (6) Paroxysmal atrial fibrillation: Status: Acute DS: Summary Hospital Course Hospital Course: Admission note HPI per ICU provider 30-year-old male with frequent presentations of hypoxic respiratory failure/status asthmaticus and more of the same today but actually had respiratory arrest at the door requiring brief resuscitation he was initially in rapid atrial fibrillation with heart rates as high as 180 converted spon taneously to sinus tachycardia rate 145 post intubation and initially there was no evidence of of chest movement clearly was severely air trapping with severe did diffuse small airway bronchospasm none and the he was started on a a paralytic agent and we had to switch from volume control to pressure control and continually reduced the inspiratory time to allow him for much greater expiratory time and then eventually expert volume started to increase the no from about the 100-150 cc eventually 250 cc and hopefully this was going to allow gradually improving alveolar ventilation which it did end-tidal CO2 is were starting to diminish from approximately 80 into the low 60s at which point his blood pressure began to stabilize as well and my bedside echocardiogram demonstrated normal anatomy with normal LV and RV size and function no primary valve or pericardial disease this appeared to be all severe reactive airway disease So he started high-dose oral steroid actually intravenous parental steroid along with very aggressive infrequent shortening as short-acting a sympathomimetic bronchodilator treatments and of course he had an elevated lactate Margie both from his in a work of breathing as well as from the sympathomimetics Both chest x-ray and chest CT scan showed no evidence of infiltrate occluded there was no aspiration and there was definitely no evidence of a even an occult pneumothorax or pneumomediastinum Hospital course The patient was intubated and admitted to ICU for respiratory failure. Overnight and treated with steroids, nebulizers with fair response. Noted to have an episode of paroxysmal AFib that converted back to sinus. Patient was extubated the next morning and downgraded to regular medical floor on oxygen supplement that he was weaned of completely the same day. He continue treatment with nebulizers and steroids with addition of antibiotic for possible aspiration. Evaluated by pulmonology team who recommended starting Breo inhaler on top of his home medications and to follow-up as outpatient for PFT and allergy study. Discharge plan To be discharged on Augmentin for 2 more days Start Breo inhaler Tapering dose of prednisone Started Breo inhalers, continue your home inhalers An epinephrine pen was prescribed if any anaphylaxis event To follow-up with pulmonology as outpatient to perform allergy testing and pulmonary function test Time Spent with Patient Time attestation: Total time spent providing and/or coordinating discharge services: Discharge coordination time: Greater than 30 minutes Quality: Stroke Does the patient have a stroke diagnosis?: No Physical Exam Vital Signs: Vital Signs: Last Vital Signs Temp 99.1 F 07/19/21 07:42 Pulse 81 07/19/21 07:42 Resp 18 07/19/21 07:42 BP 124/64 07/19/21 07:42 Pulse Ox 95 07/19/21 07:42 BMI result Body Mass Index 27.1 Const: Other: Constitutional : Alert, oriented, Neck : Normal inspection, Supple Cardiovascular : RRR, S1 S2, no lower extremity edema Respiratory : Decreased bilateral air entry, no expiratory wheezes Gastrointestinal: soft, lax, Normal bowel sounds, Non tender Skin : Warm, Dry Neurological : Alert & oriented x3, No focal deficit DS: Data Data Completed and Pending Labs on day of discharge: Laboratory Results - last 24 hr 07/19/21 07/19/21 05:58 05:58 WBC 13.7 H RBC 5.03 Hgb 14.1 Hct 41.0 L MCV 81.5 MCH 28.0 MCHC 34.4 RDW 14.5 Plt Count 211 MPV 9.0 L Absolute Nucleated RBC 0.000 Nucleated RBC % (auto) 0.0 Sodium 142 Potassium 3.8 Chloride 109 H Carbon Dioxide 25 Anion Gap 12 BUN 19 H Creatinine 0.90 Estim Creat Clear Calc 122.1 Estimated GFR > 60 Random Glucose 119 H Calcium 9.2 Preliminary micro results at discharge 07/16/21 03:50 Sputum Culture - Preliminary Sputum - Suctioned Streptococcus pneumoniae Moraxella catarrhalis 07/15/21 19:26 Blood Culture - Preliminary Blood - Venous No growth after 48 hours. 07/15/21 19:26 Blood Culture - Preliminary Blood - Venous No growth after 48 hours. Discharge Plan Discharge Patient Disposition: Home, Self-Care Discharge Diagnosis: Asthma attack cardiac arrest Referrals: Physician,Unknown J [Primary Care Provider] - 1 Week Discharge Medications: New Breo Ellipta 200-25 mcg/dose Blister With Device 1 ea inhalation RDAILY Qty: 60 RF: 2 montelukast 10 mg Tablet 10 mg PO BEDTIME 30 Days Qty: 30 RF: 0 prednisone 20 mg tablet See Taper mg PO DAILY Qty: 30 RF: 0 amoxicillin-pot clavulanate 875-125 mg tablet 1 tab PO BID Qty: 4 RF: 0 epinephrine 0.3 mg/0.3 mL auto-injector 0.3 mg IM Q4H PRN (Reason: anaphylaxis) Qty: 1 RF: 1 Continued prednisone 20 mg tablet 40 mg PO DAILY 5 Days Qty: 10 RF: 0 prednisone 20 mg tablet 60 mg PO DAILY 5 Days Qty: 15 RF: 0 Combivent Respimat 20-100 mcg/actuation mist 1 puff inhalation QID Qty: 4 RF: 0 prednisone 50 mg tablet 50 mg PO DAILY Qty: 5 RF: 0 albuterol sulfate 2.5 mg /3 mL (0.083 %) solution for nebulization 2.5 mg inhalation Q4-6H PRN (Reason: bronchospasm) Qty: 75 RF: 0 albuterol sulfate 90 mcg/actuation HFA aerosol inhaler 2 puff inhalation Q4-6H PRN (Reason: shortness of breath or wheezing) 7 Days Qty: 8.5 RF: 0 acetaminophen [Tylenol Extra Strength] 500 mg tablet 1,000 mg PO QID PRN (Reason: fever or pain) Qty: 14 RF: 0 cyclobenzaprine 10 mg tablet 10 mg PO Q8H PRN (Reason: Muscle spasm) Qty: 14 RF: 0 prednisone 20 mg tablet 40 mg PO DAILY Qty: 10 RF: 0 Discontinued albuterol sulfate [ProAir HFA] 90 mcg/actuation HFA aerosol inhaler 2 puff inhalation Q4-6H PRN (Reason: shortness of breath or wheezing) Qty: 8.5 RF: 1 albuterol sulfate 2.5 mg/0.5 mL solution for nebulization 2.5 mg inhalation QID PRN (Reason: shortness of breath or wheezing) Qty: 30 RF: 0 albuterol sulfate [ProAir HFA] 90 mcg/actuation HFA aerosol inhaler 2 puff inhalation Q4-6H PRN (Reason: shortness of breath or wheezing) Qty: 8.5 RF: 0 Discharge Orders: Discharge Order (Routine); Ordered 07/19/21 Ordered By: Naty Pérez Diet: advance to usual diet Activity on Discharge: As tolerated Stand Alone Forms: Patient Portal Discharge page Care Plan Goals: Read below Health Concerns: Read below Plan of Treatment: Read below Assessment: You were admitted to the ICU for acute respiratory distress is a result of severe asthma attack requiring intubation and mechanical ventilation overnight. Your symptoms improved with usage of steroids, nebulizers and antibiotics. Wean down to room air. Evaluated by lung specialist Dr. Tuttle who you should contact to follow-up in the office. Tapering dose of prednisone Continue antibiotic for 2 more days Started Breo inhalers, continue your home inhalers An epinephrine pen was prescribed if any anaphylaxis event To follow-up with pulmonology as outpatient to perform allergy testing and pulmonary function test
--- NOTE | 2021-07-19 09:45 | MHC.CM.PN ---
Patient has been medically cleared for dc to home today, self care.
[2021-07-19 11:16] VITALS: BP 102/54; PULSE 73; RESP 18; TEMP 36.8; O2SAT 98
[2021-07-19 11:24] VITALS: PULSE 82; RESP 18; O2SAT 95
--- NOTE | 2021-07-28 08:31 | P.CDIR_ITS ---
Documented by User: Fatimah Hernandez CCS, CDIS 07/28/21 08:36 Retrospective Query PHYSICIAN'S DOCUMENTATION REQUEST Date of Query: 07/28/21830 Patient Name: Humberto Henderson Admit Date: 07/15/21 Dear Doctor, A review of the medical record indicates additional documentation may be needed. Please review below and update the documentation accordingly. Risk Factors/Clinical Indicators/Treatments ICU - 07/16 - Focus sepsis exam performed: IV antibiotics, steroids. WBC 16.2 HR 126 Temp 100.8 RR 30 LA 8.7 Assessment/plan: Acute sepsis due to underlying aspiration. Discharge summary: 07/19 - Asthma exacerbation. Both CXR and CT showed no evidence of infiltrate occuled and no aspiration. Sepsis Systemic manifestations of infection, with 2 or more SIRS criteria which include: * Fever > 100.4?F or hypothermia < 96.8?F * Leukocytosis ? WBC > 12,000 or leukopenia, WBC < 4,000, or > 10% bands * Tachycardia- > 90 beats/minute * Tachypnea- RR > 20 breaths/minute or PaCO2 < 32mmHg Source: [employer] Manual 2013 Documentation should include the known or suspected organism, and the underlying infection, such as UTI or pneumonia Based on the above information and the recognized standard for sepsis, could you please clarify in the Progress Notes if this diagnoses is still accurate and reflective of the patient's condition to ensure quality of the medical record. * Sepsis is/was present and is a clinical diagnosis based on (please include this additional support in the medical record) * After study (the condition) has been ruled out * Other (please specify) * Unable to determine Use of terms such as suspected, likely, concern for, or probable (associated with a specific diagnosis that is being evaluated, monitored, or treated as if it exists) are acceptable and can be coded in the inpatient setting, when documented at the time of discharge. Thank you, Fatimah Hernandez CCS, CDIS Extension: [phone] Please use your independent medical judgment in providing your response. THIS QUERY IS PART OF THE PERMANENT MEDICAL RECORD Documented by User: Naty Pérez MD 07/28/21 17:45 Retrospective Query Provider Response: Other (No Sepsis )
== END 2021-07-19 13:00 | disposition home or self-care (01) | DRG 141 ==
LOC: HO.ED 18:31 → HO.ICU 18:35 → HO.IMC 07-17 17:10
PROVIDERS: Physician Assistant; Physician Assistant Medical; Admitting Provider Internal Medicine Cardiovascular Disease; Emergency Provider Emergency Medicine; PCP Internal Medicine; Visit Provider Student in an Organized Health Care Education/Training Program
DX: J45.52 Severe persistent asthma with status asthmaticus (principal); I46.9 Cardiac arrest, cause unspecified; J96.01 Acute respiratory failure with hypoxia; J69.0 Pneumonitis due to inhalation of food and vomit; N17.9 Acute kidney failure, unspecified; D72.829 Elevated white blood cell count, unspecified; I48.0 Paroxysmal atrial fibrillation; F17.210 Nicotine dependence, cigarettes, uncomplicated; Z20.822 Contact with and (suspected) exposure to COVID-19; Z71.6 Tobacco abuse counseling; Z79.51 Long term (current) use of inhaled steroids; Z79.899 Other long term (current) drug therapy
CPT/HCPCS: 36415; 36600; 71045; 71250; 80048; 80053; 80143; 80179; 80307; 81001; 82077; 82803; 82947; 83605; 83735; 84484; 85025; 85027; 87040; 87070; 87077; 87186; 87205; 87635; 93005; 94002; 94003; 94640; 94644; 94799; 96365; 96366; 96367; 96375; 96376; 99284; 99285; J0295; J0330; J2250; J2370; J2930; J3010; J3475

== ENCOUNTER 2021-07-21 10:09 | Outpatient (REF) | payer OTHER, SELFPAY ==
[2021-07-21 11:37] LABS: MANUAL DIFF FLAG NO
[2021-07-21 11:47] LABS: Basophils Percent Auto 0.2 % (0-2); Eosinophils Absolute Auto 0.6 X10*3/uL (0.0-0.4); Eosinophils Percent Auto 4.7 % (0-4); Hematocrit 50.6 % (42.0-52.0); Hemoglobin 17.2 g/dl (14.0-18.0); Imm Gran Abs Auto 0.39 X10*3/uL (0.00-0.03); Imm Gran Pct Auto 3.1 % (0.0-0.4); Lymphocytes Absolute Auto 2.5 X10*3/uL (1.2-4.9); Lymphocytes Percent Auto 19.4 % (20-40); Mean Corpuscular Hemoglobin 27.8 pg (27.0-33.0); Mean Corpuscular Volume 81.9 fL (80.0-98.0); Mean Platelet Volume 8.8 fL (9.4-12.4); Monocytes Percent Auto 7.9 % (2-11); Neutrophils Absolute Auto 8.2 x10*3/uL (2.0-8.3); Neutrophils Percent Auto 64.7 % (45-73); Platelet Count 184 X10*3/uL (160-400); Red Blood Count 6.18 X10*6/uL (4.60-5.80); Red Cell Distribution Width 15.1 % (11.0-16.0); White Blood Count 12.6 X10*3/uL (4.8-10.8)
[2021-07-21 12:42] LABS: Erythrocyte Sedimentation Rate 1 MM/HR (0-15)
[2021-07-26 04:36] LABS: IgA 288 mg/dL (47-310); IgG 986 mg/dL (600-1640); IgM 48 mg/dL (50-300)
[2021-07-27 20:16] LABS: Asperg fumigatus Precip Abs NEGATIVE (NEGATIVE); Micropoly faeni Abs NEGATIVE (NEGATIVE); Pigeon serum Abs NEGATIVE (NEGATIVE); Saccharo pora viridis Abs NEGATIVE (NEGATIVE); Thermo candidus Abs NEGATIVE (NEGATIVE); Thermoa vulgaris #1 NEGATIVE (NEGATIVE)
== END 2021-07-21 10:10 | disposition home or self-care (01) ==
LOC: HO.LAB 10:09
PROVIDERS: Visit Provider Hospitalist
DX: J45.51 Severe persistent asthma with (acute) exacerbation (principal); R91.8 Other nonspecific abnormal finding of lung field; R06.00 Dyspnea, unspecified; R53.1 Weakness; Z79.899 Other long term (current) drug therapy
CPT/HCPCS: 36415; 82784; 82785; 85025; 85652; 86003; 86331; 86606; 86609; 99212

== ENCOUNTER 2021-08-22 12:55 | Outpatient (REF) | payer OTHER, SELFPAY ==
--- NOTE | 2021-08-22 14:46 | PFT_ITS ---
Forced vital capacity 55%, FEV1 40%, FEF 25-75 is 22%, and MVV 34%. Post bronchodilator therapy, there is a significant improvement in all the flow volumes as well as MVV. Total lung capacity 107%. Residual volume 288%. Diffusion capacity 111%. CONCLUSION: Severe obstructive airway disorder with air trapping. Significant response to bronchodilator therapy resulting in almost complete reversibility. These findings are consistent with bronchial asthma. Clinical correlation is recommended. MD ERNESTINA Gordillo/MODL / [id number]
== END 2021-08-22 12:56 | disposition home or self-care (01) ==
LOC: HO.RESP 12:55
PROVIDERS: PCP Internal Medicine; Visit Provider Hospitalist
DX: J45.51 Severe persistent asthma with (acute) exacerbation (principal); R06.00 Dyspnea, unspecified; R53.1 Weakness
CPT/HCPCS: 94060; 94727; 94729

== ENCOUNTER → 2021-08-25 09:44 | Outpatient (BNVA) | payer OTHER, SELFPAY | PROVIDERS: PCP Internal Medicine; Visit Provider Hospitalist | DX: J45.50 Severe persistent asthma, uncomplicated (principal); R06.00 Dyspnea, unspecified; R53.1 Weakness; Z79.899 Other long term (current) drug therapy | CPT/HCPCS: 99212 ==

== ENCOUNTER → 2021-11-28 10:46 | Outpatient (BNVA) | payer OTHER, SELFPAY | PROVIDERS: PCP Internal Medicine; Visit Provider Hospitalist | DX: J45.51 Severe persistent asthma with (acute) exacerbation (principal); G47.33 Obstructive sleep apnea (adult) (pediatric); R06.00 Dyspnea, unspecified; R53.1 Weakness; R07.9 Chest pain, unspecified | CPT/HCPCS: 99212 ==

== ENCOUNTER → 2021-12-16 10:38 | Outpatient (BNVA) | payer OTHER, SELFPAY | PROVIDERS: PCP Internal Medicine; Visit Provider Hospitalist | DX: J45.51 Severe persistent asthma with (acute) exacerbation (principal) | CPT/HCPCS: 99211 ==

== ENCOUNTER → 2022-01-10 10:39 | Outpatient (REF) | payer OTHER, SELFPAY | LOC: HO.SL 10:39 | PROVIDERS: PCP Internal Medicine; Visit Provider Hospitalist | DX: G47.33 Obstructive sleep apnea (adult) (pediatric) (principal) | CPT/HCPCS: 95806 ==

== ENCOUNTER → 2022-02-01 10:07 | Outpatient (BNVA) | payer OTHER, SELFPAY | PROVIDERS: PCP Internal Medicine; Visit Provider Hospitalist | DX: J45.50 Severe persistent asthma, uncomplicated (principal); R06.00 Dyspnea, unspecified; R53.1 Weakness; Z79.899 Other long term (current) drug therapy | CPT/HCPCS: 99212 ==

== ENCOUNTER → 2022-03-27 11:44 | Outpatient (BNVA) | payer OTHER, SELFPAY | PROVIDERS: PCP Internal Medicine; Visit Provider Internal Medicine | DX: R06.00 Dyspnea, unspecified (principal); R07.9 Chest pain, unspecified | CPT/HCPCS: 93005; 99202 ==

== ENCOUNTER → 2022-04-10 09:44 | Outpatient (REF) | payer OTHER, SELFPAY ==
--- NOTE | 2022-04-10 09:48 | CA_ITS ---
Acquisition Time: 2022-04-10 10:08:40 Total Exercise Time: 00:09:30 Test Indications: CP Medications: SEE CHART Protocol: OLEKSANDR Max HR: 166 BPM 86% of Pred: 191 BPM Max BP: 164/068 mmHG Max Work Load: 10.9 METS Exercise stress test with exercise 9 min 30 sec of Oleksandr protocol, achieving 86% and need to stop due to fatigue, without anginal symptoms, (he did report a mild localized pressure to left of lower sternum in stage 1 that resolved in stage 2 and did not occur for remainder of test), with isolated PAC, with normotensive response to exercise, without EKG changes meeting criteria for ischemia. Test reviewed with Dr Barahona Referred By: Wilson Buck Overread By: FAUSTO STONE
== END ==
LOC: HO.CARD 09:44
PROVIDERS: PCP Internal Medicine; Visit Provider Internal Medicine
DX: R07.9 Chest pain, unspecified (principal)
CPT/HCPCS: 93017

== ENCOUNTER → 2022-04-19 13:20 | Outpatient (REF) | payer OTHER, SELFPAY ==
--- NOTE | 2022-04-19 13:23 | CA_ITS ---
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 The visually estimated ejection fraction is between 55-60%. - No obvious valvular pathology seen on this study. Findings Left Ventricle Normal left ventricular cavity size. There is normal left ventricular wall thickness. The left ventricular systolic function is normal. The visually estimated ejection fraction is between 55-60%. There is no evidence of regional wall motion abnormalities. Diastolic function is normal for age. Right Ventricle There is normal right ventricular systolic function. Top normal right ventricular size. Atria Both atria are normal in size. Aortic Valve There is a normal trileaflet aortic valve. There is no aortic valve stenosis. There is no aortic valve regurgitation. Mitral Valve The mitral valve appears normal. There is trace mitral valve regurgitation. There is no mitral valve stenosis. Pulmonic Valve The pulmonic valve is likely normal. Tricuspid Valve Normal tricuspid valve structure. There is trace tricuspid valve regurgitation. There is no evidence of pulmonary hypertension. Great Vessels The asc aorta is normal in size. Venous The inferior vena cava is normal in size and collapses greater than 50% with inspiration. Pericardium/Pleural There is no evidence of pericardial effusion. Prior Study Comparison No prior study available for comparison. Recommendations, Care & Conclusions No obvious valvular pathology seen on this study. Measurements 2D Linear Measurements IVSd: 0.94 0.6-0.9/0.6-1.0 cm LVIDd: 4.61 3.9-5.3/4.2-5.9 cm LVIDd Index: 2.41 2.4-3.2/2.2-3.1 cm/m2 LVIDs: 3.19 2.0-3.6 cm LVPWd: 0.79 0.7-1.1 cm LA Diam: 3.20 2.7-3.8/3.0-4.0 cm LAIDs Index: 1.68 1.5-2.3 cm/m2 LV Mass: 162.27 67-162/88-224 g LV Mass Index: 84.96 43-95/49-115 g/m2 LVOT Diam: 2.10 3.0+(-)1.3 cm 2D Systolic Function EF 4C: 52.00 >55% EF 2C: 54.90 >55% EF BiP: 54.10 >55% Mitral Valve MV Pk E: 0.86 MV PK A: 0.64 MV Decel Time: 191.00 E/A: 1.30 E'Lateral: 16.60 E'Medial: 12.90 E/E' Med: 6.70 E/E' Lat: 5.20 PHT: 56.00 MVA PHT: 3.93 Decel [place]: 4.66 Aortic Valve AoV Pk Nehemiah: 1.10 AoV Mn Nehemiah: 0.81 AoV VTI: 0.19 AoV Pk Grad: 5.00 Aov Mn Grad: 3.00 AMI Cont.VTI: 3.71 LVOT LVOT Pk Nehemiah: 1.17 LVOT Mn Nehemiah: 0.80 LVOT VTI: 0.20 LVOT Pk Grad: 5.00 LVOT Mn Grad: 3.00 LVOT Diam: 2.10 LVOT Area: 3.46 Diastolic Function MV Pk E: 0.86 MV Pk A: 0.64 E/A: 1.30 E'Medial: 12.90 E/E' Med: 6.70 E' Laterial: 16.60 E/E' Lat: 5.20 Right Ventricle TAPSE (mm): 19.60 TVS' Nehemiah: 9.57 Tricuspid Valve TR Pk Nehemiah: 1.94 TR Pk Grad: 15.00 RA Press: 3.00 RVSP: 18.00 Great Vessels Aorta Sinus of Valsalva: 3.40 2.0-3.[address] [place]: 2.69 1.7-3.4 cm Ao Asc: 3.10 2.1-3.4 cm Updated in Other Vendor System with Status of Final Wilson Buck MD electronically signed on 04/20/2022 10:00:54 AM with status of Final
== END ==
LOC: HO.CARD 13:20
PROVIDERS: PCP Internal Medicine; Visit Provider Internal Medicine
DX: R07.9 Chest pain, unspecified (principal); R06.00 Dyspnea, unspecified
CPT/HCPCS: 93306

== ENCOUNTER 2022-11-10 07:35 | Outpatient (REF) | payer OTHER, SELFPAY ==
--- NOTE | ~2022-11-10 | CT_ITS ---
EXAMINATION: CT CHEST WITHOUT CONTRAST CLINICAL INFORMATION: Follow-up pulmonary nodules COMPARISON: Previous chest CT June 2021 TECHNIQUE: Multidetector volumetric CT imaging of the chest was done. Axial MIP volume rendering provided. Sagittal and coronal reformatted images were obtained. This CT examination was performed using dose optimization techniques as appropriate, variously including the following: *Automated exposure control *Adjustment of mA and/or kV according to patient size (this includes techniques or standardized protocols for targeted exams where dose is matched to indication/reason for exam; i.e. extremities or head) *Use of iterative reconstruction technique DLP: 185 mGy-cm FINDINGS: LUNGS: The 1 x 4 mm right upper lobe nodule axial image 165 series 5 is stable. There is a 2 mm right upper lobe nodule axial image 199 series 5 that is stable. There is a small 2 mm peripheral or subpleural lateral right upper lobe nodule axial to 36 series 5 that is new. There is a 2 mm lateral peripheral or subpleural left lower lobe nodule axial to 57 series 5 that is new. There is a 3 mm left lower lobe nodule axial image 435 series 5 that is stable. There is subsegmental atelectasis inferior lingula and medial right middle lobe MEDIASTINUM: The mediastinum is normal. CORONARY ARTERY CALCIFICATION: None visualized on this study. PLEURA: There is no pleural effusion. No pleural mass or thickening. AXILLA: No lymphadenopathy. UPPER ABDOMEN: Unremarkable. OSSEOUS STRUCTURES: Unremarkable. CT/CT chest wo IV con IMPRESSION: Two new 2 mm peripheral or subpleural pulmonary nodules probably representing subpleural lymph nodes. Small pulmonary nodules or micronodules are otherwise stable. According to the UPDATED 2017 Fleischner Society recommendations, the advised follow-up imaging for less than 6 mm solid nodule: Low risk, no chest CT follow-up and high risk, optional chest CT follow-up in one year. Fleischner guidelines were followed.
== END 2022-11-10 07:36 | disposition home or self-care (01) ==
LOC: HO.CT 07:35
PROVIDERS: PCP Internal Medicine; Visit Provider Hospitalist
DX: R91.8 Other nonspecific abnormal finding of lung field (principal)
CPT/HCPCS: 71250

== ENCOUNTER 2023-03-13 12:37 | Outpatient (AMB) | payer OTHER, SELFPAY ==
--- NOTE | 2023-03-13 12:58 | MHC.OFFVIS ---
Intake Vital Signs 03/13/23 13:05 Height 5 ft 5 in Weight 176 lb 5.917 oz BMI 29.3 BP 118/70 Blood Pressure Location Lt brachial Position Sitting Pulse 76 Pulse Source Pulse Oximeter Pulse Oximetry (%) 96 Oxygen Delivery Method Room Air Intake Visit Reasons: asthma [employer] Supervisor Required: No Allergies unknown antibiotic Allergy (Uncoded 03/13/23 13:07) Itching HPI HPI Comments History of Present Illness Details ?The patient is a 32 [id number] male with frequent presentations of hypoxic respiratory failure/status asthmaticus and more of the same today but actually had respiratory arrest at the door requiring brief resuscitation he was initially in rapid atrial fibrillation with heart rates as high as 180 converted spontaneously to sinus tachycardia rate 145 post intubation and initially there was no evidence of of chest movement clearly was severely air trapping with severe did diffuse small airway bronchospasm none and the he was started on a a paralytic agent and we had to switch from volume control to pressure control. Both chest x-ray and chest CT scan showed no evidence of infiltrate occluded there was no aspiration and there was definitely no evidence of a even an occult pneumothorax or pneumomediastinum.? The patient was treated for the status asthmaticus but made a dramatic recovery and was able to be liberated from the ventilator.? He was discharged home. But, has been having a difficult time. Does not have a nebulizer or medicine. Also since he was discharge he has been very weak with difficulty walking. He does have a PCP appointment in the coming days. 06/07/2022 the patient has not telehealth visit today. He has been working overnight and has been difficult to make it to the appointment today. He also has some food poisoning. He states that his respiratory symptoms have improved. The Dupixent injections have very effective. Has not required any prednisone or has required hospitalizations. However, now with his work in his routine he has been not keeping up the Dupixent injections as prescribed. Therefore he is having some breakthrough symptoms needing his rescue inhaler more often. Complaining of centers chest tightness moderate severity. The patient understands that the Dupixent is treating his symptom relief and he stops the medication then symptoms are going to return just the same. Therefore I emphasized importance of taking the Dupixent injections every 2 weeks. The patient understands and will continue the therapy. We did review his imaging studies that he had back in June 2021. Does have underlying pulmonary nodules present on that CT scan. The patient does need to have a repeat CT scan within the next 4-6 months to follow up the pulmonary nodules and make sure that they are not progressing in size. 03/13/2023 the patient is here for pulmonary follow-up visit. The patient overall is doing well. He continues on the Dupixent injection. Although is very painful. Unfortunately he did move to a different apartment and he has been exposed to more fumes and cigarette smoke from the other tendons. The patient has been struggling with this issue. He has been noticing that he has been having hard time breathing lately. He did need a course of prednisone. Patient also has been using his nebulizer. He has also been on the Advair twice a day. Will go ahead and maximize his respiratory therapy was switching over to Trelegy inhaler. I do believe she will do better on the single Trelegy therapy and I know that it will provide better as years. In addition the patient has been the Dupixent for some time and does not appear to be helping him 100% although it is effective to some degree. I do believe that optimizing his biologic therapy to Tezspire will result in better asthma control. Therefore will will start the process to switch him over to Tezspire. If the patient is no better up make sure to have some prednisone on hand that he can take if his symptoms worsen. I believe that he will respond positively to the changes and will not need the prednisone at this time. FOR[facility] Medical History (Updated 03/13/23 @ 20:06 by Rubio Tuttle MD) Asthma Asthma Dyspnea Heart attack Pulmonary nodules Status asthmaticus, intrinsic Weakness Surgical History (Updated 03/27/22 @ 12:56 by KYLE Novak) No pertinent past surgical history Family History (Updated 03/27/22 @ 13:07 by KYLE Novak) Father Family history unknown Mother Lung cancer Social History (Updated 03/27/22 @ 12:57 by KYLE Novak) Household Members: Significant Other Housing: House Do you presently have visiting nurse or other home services: No Unable to assess alcohol history related to: Unable to respond Alcohol intake: current Patient Tobacco Use Status: Former Tobacco user Quit Date: 06/2021 service: No Current occupational status: employed Review of Systems Const Denies daytime sleepiness, Reports difficulty sleeping, Denies fatigue and Denies night sweats ENT Denies change in voice, Denies lip swelling, Denies mouth pain, Reports nasal congestion, Reports nasal discharge and Denies tongue swelling Card Denies chest pain, Denies dyspnea and Reports dyspnea on exertion Resp Reports cough, Denies dyspnea, Reports dyspnea on exertion and Reports wheezing GI Denies abdominal pain Musc Denies abnormal gait and Denies muscle weakness Neuro Denies abnormal gait Psych Denies no additional complaints Endo Denies fatigue Kevin/Lymph Denies easy bleeding and Denies lymphadenopathy Aller/Immun Denies lip swelling, Denies tongue swelling and Reports wheezing Physical Exam Vital Signs: Last Vital Signs Pulse 76 03/13/23 13:05 BP 118/70 03/13/23 13:05 Pulse Ox 96 03/13/23 13:05 Oxygen Delivery Method Room Air 03/13/23 13:05 BMI result Body Mass Index 29.3 Const General: alert Neck Neck: Yes normal visual inspection, Yes full ROM and Yes no lymphadenopathy Chest Chest palpation & inspection: normal inspection of the chest Resp Effort & Inspection: prolonged expiratory phase Auscultation: wheezes and diminished lung sounds Cardio Rate: regular rate Rhythm: regular rhythm Heart sounds: S1 normal heart sound present and S2 normal heart sound present GI Palpation (GI): Soft to palpation and nontender Auscultation: normal bowel sounds Skin General skin exam: rashes and/or lesions noted Neuro Gait exam (Neuro): Assisted gait required Gait assisted method: other (person) Assessment & Plan Assessment & Plan (1) Asthma: Code(s): J45.909 - Unspecified asthma, uncomplicated Qualifiers: Asthma complication type: with acute exacerbation Asthma persistence: persistent Asthma severity: severe Qualified Code(s): J45.51 - Severe persistent asthma with (acute) exacerbation (2) Dyspnea: Code(s): R06.00 - Dyspnea, unspecified (3) Pulmonary nodules: Code(s): R91.8 - Other nonspecific abnormal finding of lung field Plan stop Dupixent every 2 weeks start Tezspire qmonthly stop Advair twice a day start Trelegy 200 BUdesonide nebs continue Combivent 4 times a day short-acting beta agonist as allergy medicine: Singulair and Claritin daily follow-up in 3-4 months Medications: New auzhrruyqxx-xjdvrpurd-wqycenen 200-62.5-25 mcg (Trelegy Ellipta) 1 inh inhalation DAILY 30 days 60 ea 12RF prednisone PO daily; Take 6 tabs daily x 3 days, then 5 tabs x 3 days, then 4 tabs x 3 days, then 3 tabs x 3 days, then 2 tabs daily x 3 days, then 1 tab x 3 days to complete. 18 days 63 tabs 0RF Refilled albuterol sulfate 2.5 mg (3 mL) inhalation Q4H 30 days PRN 360 mL 11RF shortness of breath or wheezing Discontinued Advair Diskus 500-50 mcg/dose (fluticasone propion-salmeterol) Discontinued Reason: Doctor's Order 1 ea PO Q12H 60 ea 3RF NS Coding Level of Care Code Est Pt Level 4 (69925) Diagnoses Asthma J45.51 Asthma complication type: with acute exacerbation Asthma persistence: persistent Asthma severity: severe Dyspnea R06.00 Pulmonary nodules R91.8 Time Spent (min) 19
[2023-03-13 13:05] VITALS: BP 118/70; PULSE 76; O2SAT 96; BMI 29.3
== END 2023-03-13 13:38 | disposition home or self-care (01) ==
PROVIDERS: PCP Internal Medicine; Visit Provider Hospitalist
DX: J45.51 Severe persistent asthma with (acute) exacerbation (principal); R06.00 Dyspnea, unspecified; R91.8 Other nonspecific abnormal finding of lung field
CPT/HCPCS: 99214

== ENCOUNTER → 2023-03-13 12:37 | Outpatient (BNVA) | payer OTHER, SELFPAY | PROVIDERS: PCP Internal Medicine; Visit Provider Hospitalist | DX: J45.51 Severe persistent asthma with (acute) exacerbation (principal); R06.00 Dyspnea, unspecified; R91.8 Other nonspecific abnormal finding of lung field | CPT/HCPCS: 99212 ==

== ENCOUNTER 2023-05-31 13:06 | Outpatient (REF) | payer OTHER, SELFPAY | END 2023-05-31 13:07 | disposition home or self-care (01) | LOC: HO.MDS 13:06 | PROVIDERS: Visit Provider Hospitalist | DX: J45.50 Severe persistent asthma, uncomplicated (principal) | CPT/HCPCS: 96372 ==